=== PATIENT | female | born 1950 | race Caucasian/White ===

== ENCOUNTER 2024-09-06 20:44 | Inpatient (IN) | payer MEDICARE, MEDICAID, SELFPAY ==
[2024-09-06 20:52] VITALS: BP 126/73; PULSE 50; RESP 17; TEMP 36.6; O2SAT 97
--- NOTE | 2024-09-06 20:58 | XR_ITS ---
Examination: CT brain head without contrast. 2-D sagittal coronal reconstructions Date and time of exam:September 07, 1999 2510 0 5:00 PM INDICATIONS: Frequent falls over the last 2-3 weeks with head pain and weakness CTDI: vol (mGy):48.6 DLP: (mGycm):936 Technique: Multiple CT axial sections of the brain have been obtained, 5 mm slice thickness. Contrast has not been administered. 2-D sagittal, coronal reconstructions have been obtained Low dose protocols were performed. One or more of the following dose reduction techniques were used; automated exposure control, adjustment of the mA and/or KV according to patient size, use of iterative reconstruction technique. Findings: No significant ventricular enlargement. Probable encephalomalacia left posterior parietal lobe Intra-axial or extra-axial hemorrhage density is not seen. No mass effect or midline shift Basal cisterns are not remarkable. Fourth ventricle is midline. Cranial vault intact. Impression: Negative for acute hemorrhage, mass effect or midline shift
--- NOTE | 2024-09-06 20:58 | XR_ITS ---
Examination: CT cervical spine without contrast 2-D sagittal reconstructions 2-D coronal reconstructions 3-D reconstructions. Exam date and time:September 06, 2024 1008 hours INDICATIONS: Frequent falls over the last 2-3 weeks with injury to the neck, neck pain CTDI:vol (mGy) 9 DLP: (mGycm) 193 Technique: Multiple 2 mm axial sections of the cervical spine have been obtained. The coronal and sagittal reconstructions have been obtained. 3-D reconstructions have been obtained. Low dose protocols were performed. One or more of the following dose reduction techniques were used; automated exposure control, adjustment of the mA and/or KV according to patient size, use of iterative reconstruction technique. Findings: Axial sections demonstrate intact base of the skull. C1 exhibit satisfactory relationship to the odontoid. No acute cervical vertebral body fracture seen. Alignment posterior spinous processes satisfactory. Impression: No acute cervical fracture.
--- NOTE | 2024-09-06 21:00 | PD.EDADULT ---
ED General RME/HPI General Chief complaint: Weakness Stated complaint: WEAKNESS Time Seen by Provider: 09/06/24 20:58 Arrival date/time: 09/06/24 20:44 CC: Recurrent increased weakness, 5 falls in the last 3 weeks the last one 2 to 3 days ago. Patient denies blood thinners. EMS reports stable vital signs. Patient is awake alert oriented times to person and place complaining of left-sided chest pain status post the last fall. At 2144 with a more detailed discussion with the patient and a family member at bedside with the rain of the nurse at bedside the patient states that she is DNR/DNI. History shows the patient has been offered once pacemaker and of previous episode for similar complaints but declined at today she is willing to try the pacemaker. Related Data Home Medications ?Medication ?Instructions ?Recorded ?Confirmed melatonin 10 mg tablet 10 mg PO HS 09/01/21 09/01/21 Allergies Allergy/AdvReac Type Severity Reaction Status Date / Time No Known Allergies Allergy Verified 09/01/21 11:41 Review of Systems Review of Systems Narrative Review of Systems: GEN: No fever, no chills, no weight loss EYES: No discharge, no visual changes, no pain HEENT: No ear pain, no congestion, no sore throat PULM: No shortness of breath, no cough, no congestion CV: +left chest wall pain, no dyspnea on exertion, no palpitations GI: No nausea, no vomiting, no diarrhea, no pain, no constipation : No frequency, no urgency, no dysuria MUSC/SKEL: No joint pain, no back pain SKIN: No rash PSYCH: No hallucinations, no depression HEME/LYMPH: No easy bleeding or bruising tendencies NEURO: + weakness, no headache Past Medical History Past Medical History NEUROLOGIC: Negative Seizures CARDIAC: Positive Atrial Fibrillation and Hypertension; Negative Congestive Heart Failure RESPIRATORY: Negative Chronic Obstructive Pulmonary Disease (COPD) GENITOURINARY: Negative Renal Disease ENDOCRINE: Negative Diabetes Mellitus Type 1 or Diabetes Mellitus Type 2 HEMATOLOGIC: Positive Anemia OTHER HISTORY: Negative Blood Transfusions or Anesthesia Reactions Social History SMOKING STATUS: Never smoker SECOND HAND EXPOSURE: No SUBSTANCE USE: does not use ED Exam Narrative Physical exam: [General: Morbidly obese not in any acute distress Head normocephalic HEENT: Within acceptable limits Neck is supple nontender Chest equal chest rise nontender to palpation Respiratory: Clear to auscultation no wheezes crackles or rubs CV: Rate rhythm is regular no murmurs rubs or clicks Abdomen is grossly distended secondary to body habitus soft nontender no masses positive bowel sounds all 4 quadrants Back: No CVA tenderness no spinous process tenderness from cervical spine thoracic and lumbar spine Skin: Intact no petechiae rash induration ulceration or crepitus Extremities: Moving all extremities weakly against resistance cap refill less than 2 seconds neurosensory intact Neuro: Awake alert oriented x2, person and place Glascow coma 15 no focal deficits] Course Course Course Narrative: Review the laboratory results show the patient has a worsening CKD, this was discussed with Dr. De Leon her PCP. Dr. De Leon also wants the patient admitted to the ICU and spoke with the resident for Dr. King for the ICU who agrees to accept the patient for admission. Patient currently in bed 1 1 pacer pads. The primary concern is the patient's A-fib with slow ventricular response in the high 30s. The patient remains asymptomatic when laying flat with stable vital signs however concerned about her getting up. Patient in the past declined having a pacer placed but now wants it done. Patient also clearly stated that she was a DNR/DNI. After speaking with Dr. De Leon she is requesting Dr. Aggarwal be involved with this patient's care. Quality Measures none Orders Category Date Time Status EKG (ED ONLY) *Do not use* NOW Care 09/06/24 20:58 Completed Consult to Cardiology Stat Cons 09/06/24 22:46 Ordered Consult to Nephrology Stat Cons 09/06/24 22:[address] cervical spine wo con Stat Exams 09/06/24 20:[address] head/brain wo con Stat Exams 09/06/24 20:58 Completed EKG (ED Only) Stat Exams 09/06/24 20:58 Stop Req XR chest 1V Stat Exams 09/06/24 21:01 Completed B-Type Natriuretic Peptide Stat Lab 09/06/24 21:37 Completed CBC Stat Lab 09/06/24 21:37 Completed Comprehensive Metabolic Panel Stat Lab 09/06/24 21:37 Completed Drug Screen,Urine Stat Lab 09/06/24 21:18 Completed LDH (Lactate Dehydrogenase) Stat Lab 09/06/24 21:37 Completed Magnesium Stat Lab 09/06/24 21:37 Completed Partial Thromboplastin Time Stat Lab 09/06/24 21:37 Completed Prothrombin Time with INR Stat Lab 09/06/24 21:37 Completed Troponin I Stat Lab 09/06/24 21:37 Completed Type and Screen Stat Lab 09/06/24 21:37 Results Urinalysis Stat Lab 09/06/24 21:18 Completed Vital Signs Vital signs: Vital Signs Temperature 97.9 F 09/06/24 20:52 Pulse Rate 50 L 09/06/24 20:52 Respiratory Rate 17 09/06/24 20:52 Blood Pressure 126/73 09/06/24 20:52 Pulse Oximetry (%) 97 09/06/24 20:52 Oxygen Delivery Method Nasal Cannula 09/06/24 20:52 Oxygen Flow Rate 4 09/06/24 20:52 Discharge Plan Plan Patient Disposition: Admit Acute Care w/in Hospital Patient condition on transfer: Stable Prescriptions/Referrals Prescriptions/Med Rec: No Action melatonin 10 mg Tablet 10 mg PO HS Referrals: No Primary/Family,Physician [Primary Care Provider] - In 1 week Problem List Clinical Impression: Symptomatic bradycardia, BOOGIE (acute kidney injury), Recurrent falls, Weakness Patient/Caregiver Discharge Instructions Print Language: Bengali Stand Alone Forms: [employer] Award Info., Patient Portal Info Letter PA/STUDENT [employer] DEAN Supervising Physician PA/[employer]UD[employer] DEAN Supervising Physician: Kev Crawford ENP MDM Clinical Information Provided by: patient and EMS Medical Records reviewed [facility] and EMS EKG Interpretation EKG #1: EKG Interpretation: EKG performed at 2046 shows a ventricular rate of 4 6 QRS of 180 QTc of 478 this is A-fib with slow ventricular response. When compared to an old EKG there are no significant morphologic changes however the rate is slightly lower. Labs Labs: Interpreted by me Lab(s) Interpretation(s): CBC shows no acute leukocytosis anemia there is thrombocytopenia with a platelet count of 84. Coags within acceptable limits Urine is negative for urinary tract infection. UDS is negative CMP shows sodium 140 potassium 4.4 chloride 108 CO2 28.9 gap of 3 BUN 53 creatinine 2.2 glucose 153 serum osmole 297 Troponin is 0.024 BNP at 88. UDS is negative Imaging Imaging interpretation: Interpreted by me Imaging Interpretation(s): Chest x-ray as interpreted by me read by radiology shows no pneumothorax
--- NOTE | 2024-09-06 21:01 | XR_ITS ---
Examination: AP chest single view Technique one AP portable upright chest single view Date and time: September 06, [id number] hours Comparison September 01, 2021 INDICATIONS: Patient fell today with image of the chest, left chest pain FINDINGS: Large retrocardiac gastric hernia Mild to moderate enlargement cardiac contour. No pneumothorax. Clavicles ribs appear intact IMPRESSION: No pneumothorax pulmonary contusion or hemothorax
[2024-09-06 21:02] VITALS: PULSE 54; RESP 20; O2SAT 90
[2024-09-06 21:21] VITALS: BMI 42.5
[2024-09-06 21:45] LABS: Collection Type, Urine Clean Catch
[2024-09-06 21:49] LABS: Basophils % (Auto) 1 % (0-2.5); Eosinophils # (Auto) 0.2 Thou/mm3 (0.0-0.5); Eosinophils % (Auto) 3 % (0-10); Hematocrit 39.4 % (36.0-46.0); Hemoglobin 13.3 g/dL (12.0-16.0); Immature Granulocytes % (Auto) 1 % (0-0); Immature Granulocytes Auto 0.03 Thou/mm3 (0.00-0.00); Lymphocytes # (Auto) 1.3 Thou/mm3 (1.0-4.8); Lymphocytes % (Auto) 20 % (10-50); Mean Corpuscular HGB Conc 33.8 g/dl (31.0-37.0); Mean Corpuscular Hemoglobin 29.4 pg (25.0-35.0); Mean Corpuscular Volume 87 fL (80-100); Monocytes # (Auto) 0.4 Thou/mm3 (0.0-0.8); Monocytes % (Auto) 6 % (0-12); Neutrophils # (Auto) 4.6 Thou/mm3 (1.8-7.7); Neutrophils % (Auto) 70 % (37-80); Nucleated Red Blood Cell % 0 /100 WBC (0); Platelet Count 84 Thou/mm3 (140-440); RDW Standard Deviation 46.2 fL (36.4-46.3); Red Blood Count 4.53 Miln/mm3 (4.00-5.20); White Blood Count 6.6 Thou/mm3 (3.6-11.0)
[2024-09-06 21:54] LABS: Bilirubin,Urine Negative (Negative); Blood,Urine Negative (Negative); Clarity,Urine Clear (Clear/Hazy); Color,Urine Lt-Yellow (Lt Yel-Yel); Glucose, Urine Negative (Negative); Hyaline Casts,Urine < 1 /hpf (0-1); Ketones,Urine Negative (Negative); Leukocyte Esterase,Urine Negative (Negative); Nitrite,Urine Negative (Negative); PH,Urine 5.5 (5.0-7.0); Protein,Urine Negative (Neg - Trace); RBC,Urine < 1 /hpf (0-3); Specific Gravity,Urine 1.017 (1.001-1.035); Squamous Epithelial Cell,Urine 2 /hpf (0-5); Urobilinogen,Urine Negative mg/dL (0.0-1.0); WBC,Urine < 1 /hpf (0-5)
[2024-09-06 22:01] LABS: Amphetamine/Methamp Scrn,U Negative (Negative); Barbiturate Screen,Urine Negative (Negative); Benzodiazepines Screen,Urine Negative (Negative); Benzoylecgonine Screen, Ur Negative (Negative); Fentanyl Screen,Urine Negative (Negative); Opiate Screen,Urine Negative (Negative); THC Screen,Urine Negative (Negative)
[2024-09-06 22:03] LABS: Partial Thromboplastin Time 24.2 Seconds (22.0-36.0)
[2024-09-06 22:06] LABS: B-Type Natriuretic Peptide 88 pg/mL (0-100)
[2024-09-06 22:19] LABS: Alanine Aminotransferase < 7 U/L (10-49); Albumin, Serum 3.9 gm/dL (3.4-4.8); Albumin/Globulin Ratio 1.4 (1.2-2.2); Alkaline Phosphatase 79 U/L (46-116); Anion Gap 3 (7-16); Aspartate Amino Transferase 11 U/L (0-34); BUN/Creatinine Ratio 24 Ratio (12-20); Bilirubin,Total 0.6 mg/dL (0.3-1.2); Blood Urea Nitrogen 53 mg/dL (9-23); Calcium 8.9 mg/dL (8.3-10.6); Carbon Dioxide 28.9 mMol/L (20.0-31.0); Chloride 108 mMol/L (98-107); Creatinine (Component) 2.2 mg/dL (0.6-1.3); Globulin 2.8 gm/dL (2.3-3.5); Glucose 153 mg/dL (74-106); LDH (Lactate Dehydrogenase) 163 U/L (120-246); Magnesium 2.2 mg/dL (1.6-2.6); Osmolality,Calculated 296 (275-295); Potassium 4.5 mMol/L (3.4-5.1); Sodium 140 mMol/L (136-145); Total Protein 6.7 gm/dL (5.7-8.2); Troponin I 0.024 ng/mL (0.0-0.045); eGFR 23 See Note
--- NOTE | 2024-09-06 23:04 | EVENTNT_ITS ---
Documentation for date of: 09/06/24 Event Note Event Note: A 74-year-old female presented to the ER with the chief complaint of weakness. The patient described three weeks of progressive generalized weakness. She reported five falls during this period, with each fall leaving her increasingly debilitated. She stated that after the most recent fall, 2?3 days ago, she became unable to walk independently and required assistance even for basic activities such as transferring to a bedside commode. She reported pain with ambulation and described her legs as too weak to support her. She also c/o mild headache (not positional or associated with visual changes) and nausea without vomiting. The patient denied loss of consciousness, dizziness, chest pain, shortness of breath, vomiting, or leg swelling. She reported no recent trauma and stated that the falls were not associated with any syncopal events. She came to the ER due to worsening weakness and inability to ambulate. The patient has a history of HTN and hyperlipidemia. Surgical history includes remote cholecystectomy. Current medications include Allopurinol, Aspirin, Trazodone, Senna, Lasix, Hydralazine, Lisinopril, and Atorvastatin. Social history includes no smoking, no alcohol use, and no recreational drug use. She lives with her daughter and grandchildren. Functional status was previously independent in ADLs and ambulation; she now requires assistance. Left heart catheterization in 08/2021 showed no significant coronary artery disease. In the ER, vital signs were recorded as temp 97.9 ?F, HR 50 bpm, RR 17, BP 126/73 mmHg, BMI 42, and GCS 15. Lab results revealed WBC 6.6, Hb 13.3, PLT 84, Na 140, K 4.5, Cl 108, BUN 53, creatinine 2.2, eGFR 29, and glucose 153. CXR showed mild to moderate enlargement of the cardiac contour, with no pneumothorax, pulmonary contusion, or hemothorax. EKG demonstrated second-degree AV block, Mobitz type I, rate 46. Admit for further evaluation; pacemaker placement is pending cardiology review. #Symptomatic bradycardia Assessment: Bradycardia (HR 30~50), symptomatic with progressive weakness and multiple falls, EKG-confirmed Mobitz I AV block, pending cardiology evaluation for permanent pacing; BP stable (126/73), GCS 15, no signs of shock; currently hemodynamically stable Plan: - ICU admission overnight for telemetry and close hemodynamic monitoring - Dopamine drip - Bedside pacemaker placement PRN if hemodynamics deteriorate - Cardiology to evaluate in the AM for definitive pacemaker planning - Avoid AV jaskaran blockers - Monitor for progression to higher-grade block or unstable bradycardia #Acute on chronic kidney disease Assessment: Baseline Cr 1.6 (Sep last year), now Cr 2.2 with BUN 53; eGFR 29; evidence of BOOGIE on CKD; chronic HTN and diuretic use; BMI 42 (Class III Obesity) Plan: - Hold nephrotoxic agents - Monitor renal function and electrolytes daily - Nephrology f/u #Falls and functional decline Assessment: Five mechanical falls over 3 weeks with progressive debility, cu rrently non-ambulatory; requires assistance for all ADLs; no syncope or trauma Plan: - Physical therapy evaluation - Fall precautions #Thrombocytopenia Assessment: PLT 84; etiology unclear Plan: - Monitor serial platelet counts - Evaluate for signs of bleeding - SCD #Hypertension Assessment: History of HTN on multiple antihypertensives (including hydralazine and furosemide); currently normotensive (BP 126/73) Plan: - Hold BP meds now - Resume home antihypertensives as renal function stabilizes and volume status is optimized
[2024-09-07] VITALS (91 sets, daily range): BP systolic 94–196; BP diastolic 42–132; PULSE 34–109; RESP 12–30; TEMP 35.9–36.8; O2SAT 88–98
--- NOTE | 2024-09-07 00:04 | PD.RESHP ---
Documentation for date of: 09/07/24 HPI History of Present Illness Chief complaint: Generalized weakness History of present illness: Ms. 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 Patient states for the last 2 to 3 weeks she has been having increased amount of falls 5 episodes of falls. She denies any preceding aura, lightheadedness, passing out, chest pain, shortness of breath, dizziness or any other associated symptoms with the fall. But she does state that she has noticed that she has become weaker requiring assistance to get to the bedside commode. She was previously recommended to have a pacemaker placed but refused because she wanted to attend physical rehabilitation following her CVA. She denies any relevant family history of heart conditions. She currently states that she is wanting a pacemaker now and rehabilitation to improve her functional status. Past medical history: HFpEF 65%, bradycardia, generalized weakness, CVA without residuals, CKD stage IIIb, hypertension, hyperlipidemia, gout Past surgical history: Cholecystectomy 10 years prior Allergies: No known drug allergies Social history: Patient lives with her daughter and grandkids. Is able to ambulate with the assistance of a front wheeled walker but recently has had decreased ambulation and has required assistance. Denies any alcohol or tobacco use. Family history no relevant family history In the ER, vital signs were recorded as temp 97.9 ?F, HR 50 bpm, RR 17, BP 126/73 mmHg, BMI 42, and GCS 15. Lab results revealed WBC 6.6, Hb 13.3, PLT 84, Na 140, K 4.5, Cl 108, BUN 53, creatinine 2.2, eGFR 29, and glucose 153. CXR showed mild to moderate enlargement of the cardiac contour, with no pneumothorax, pulmonary contusion, or hemothorax. EKG demonstrated second-degree AV block, Mobitz type I, rate 46. Admit for further evaluation; pacemaker placement is pending cardiology review. Review of Systems Review of Systems Systems Reviewed: All systems reviewed, normal except as documented Exam Vital Signs Temp Pulse Resp BP Pulse Ox O2 Del Method O2 Flow Rate 97.9 F 50 L 17 126/73 97 Nasal Cannula 4 09/06/24 20:52 09/06/24 20:52 09/06/24 20:52 09/06/24 20:52 09/06/24 20:52 09/06/24 20:52 09/06/24 20:52 Narrative Exam GENERAL: Alert and oriented x 3. No acute distress. Elderly and obese female. EYES: EOMI. Anicteric. HEENT: Moist mucous membranes. No scleral icterus. No cervical lymphadenopathy. LUNGS: Clear to auscultation bilaterally. No accessory muscle use. CARDIOVASCULAR: Irregularly irregular with bradycardia. No murmur. No JVD. ABDOMEN: Soft, non-tender and non-distended. No palpable masses. EXTREMITIES: All 4 extremeties intact. No edema. Nontender. SKIN: Skin underneath the feet appears dirty with long toenails. Warm. NEUROLOGIC: No focal neurological deficits. CN II-XII grossly intact, but not individually tested. PSYCHIATRIC: Cooperative. Appropriate mood and affect. Results: Labs 09/06/24 21:37 09/06/24 21:37 Labs: Short CBC 09/06/24 Range/Units 21:37 WBC 6.6 (3.6-11.0) Thou/mm3 Hgb 13.3 (12.0-16.0) g/dL Hct 39.4 (36.0-46.0) % Plt Count 84 L (140-440) Thou/mm3 BMP 09/06/24 21:37 Sodium 140 Potassium 4.5 Chloride 108 H Carbon Dioxide 28.9 BUN 53 H Creatinine 2.2 H Glucose 153 H Calcium 8.9 Cardiac Enzymes 09/06/24 Range/Units 21:37 Troponin I 0.024 (0.0-0.045) ng/mL Liver Function 09/06/24 Range/Units 21:37 Total Bilirubin 0.6 (0.3-1.2) mg/dL AST 11 (0-34) U/L ALT < 7 L (10-49) U/L Alkaline Phosphatase 79 (46-116) U/L Albumin 3.9 (3.4-4.8) gm/dL Urine 09/06/24 Range/Units 21:18 Urine Color Lt-Yellow (Lt Yel-Yel) Urine Clarity Clear (Clear/Hazy) Urine pH 5.5 (5.0-7.0) Ur Specific [place] 1.017 (1.001-1.035) Urine Protein Negative (Neg - Trace) Urine Glucose (UA) Negative (Negative) Quality Measures Quality Measures none Advance care planning discussed with:: patient Medications Home Medications and Allergies Home Medications ?Medication ?Instructions ?Recorded ?Confirmed ?Type melatonin 10 mg tablet 10 mg PO HS 09/01/21 09/01/21 History Allergies Allergy/AdvReac Type Severity Reaction Status Date / Time No Known Allergies Allergy Verified 09/01/21 11:41 Visit Medications Acetaminophen (Acetaminophen 325 Mg Tablet) 650 mg PO Q6H PRN PRN Reason: PAIN SCALE 1-3 (mild Stop: 10/06/24 23:53 Lactated Ringer's (Lactated Ringers) 1,000 mls @ 75 mls/hr IV .[id number] FAN Stop: 10/06/24 23:44 Dopamine HCl/Dextrose (Intropin In D5w Ivpb) 400 mg in 250 mls @ 21.738 mls/hr IV .[id number] FAN; Protocol Stop: 10/06/24 23:56 Ondansetron HCl (Ondansetron Inj 2 Mg/Ml Inj 2 Ml) 4 mg IV Q6H PRN; Protocol PRN Reason: NAUSEA OR VOMITING Stop: 10/06/24 23:53 Pantoprazole Sodium (Pantoprazole Inj 40 Mg Vial) 40 mg IVP QDAY FAN Stop: 10/07/24 08:59 Sennosides (Senna Tablet) 1 tab PO QDAY FAN; Protocol Stop: 10/07/24 08:59 Assessment & Plan Plan Neurology Problem: Insomnia/difficulty sleeping Treatment plan: Patient takes trazodone 50 mg p.o. at bedtime, multiple nutritional supplements including melatonin and other sleep aids Will hold medications until postprocedure Cardiovascular Problem: Symptomatic bradycardia DDx: EKG reveals A-fib with slow ventricular rate. Previous history of Mobitz type I Diagnostic Test: EKG reveals AFIB with rate of 46. Appears chronic Treatment Plan: Start dopamine drip, titrate to keep heart rate above 40, cardiology consultation ordered, cardiac echo exam ordered Treatment Review: Patient currently is asymptomatic and stable Problem: Hypertension Diagnostic test: Monitor vital signs every hour Treatment plan: Patient takes lisinopril 40 Mg p.o. daily, Lasix 40 Mg p.o. daily hydralazine. Will resume medications once blood pressure can tolerate Respiratory Problem: Stable, no active disease GI and F/E/N Problem: None, n.p.o. Renal Problem: BOOGIE on CKD DDx: May be secondary to decreased p.o. intake and generalized weakness. Unlikely to be postrenal in the fact patient has not had difficulty with urination or dysuria. CKD may be in the setting of longstanding hypertension Diagnostic Test: Monitor with daily labs. Currently creatinine 2.1 and baseline is 1.5-1.6 Treatment Plan: Will get patient's nutrition club ambassador Dr. De Leon on board. LR at 75 cc an hour Heme Problem: Stable, NAD Endo Problem: Stable, NAD. A1c in the a.m. ID Problem: Stable, NAD DVT prophylaxis: SCDs, will transition to chemical DVT prophylaxis after patient is assessed by cardiology GI prophylaxis: Protonix IV 40 daily Diet: N.p.o. currently [place]: Not indicated Lines: Peripheral IVs Drips: Dopamine to be titrated to maintain heart rate above 40 Vent: N/A CODE STATUS: DNR/DNI Reason for hospitalization generalized weakness with frequent falls and asymptomatic bradycardia Plan of care discussed with supervising attending Dr. Fernando Maldonado M.D. PGY-3 Attending Provider Attestation/Addendum Pt was evaluated and plan formulated together with the housestaff team. I have reviewed the residents note above and agree with most of its content. Please refer to the residents note for additional details. Critical time spent on the patient: 52 minutes.
[2024-09-07] MEDS: RINGERS LACTATED 1000 ML 1,000 ML 75 ML IV (00:21)
[2024-09-07] MEDS: DOPamine/D5w 400 MG IVPB 400 MG/250 ML BAG 21.738 MG IV ×2 (01:21→12:56)
--- NOTE | 2024-09-07 02:20 | PC.NURSE ---
DR. SOLANO MADE AWARE OF NOTED CHANGE IN RHYTHM ON MONITOR. PT AWAKE AND ALERT, DENIES ANY CHEST PAIN OR SOB. VERBAL ORDER RECEIVED FOR REPEAT EKG.
--- NOTE | 2024-09-07 02:25 | EKG_ITS ---
[facility] Test Date: 2024-09-07 Pat Name: BUDDY DICK Department: Room: [facility] Gender: Female Organizational Effectiveness Director: : 1950 Requested By: Gela Maldonado Order Number: [id number] Reading MD: Gela Maldonado Measurements Intervals [place] Rate: 74 P: NC: QRS: -60 QRSD: 186 T: 63 QT: 426 QTc: 474 Interpretive Statements UNCERTAIN IRREGULAR RHYTHM RIGHT BUNDLE BRANCH BLOCK [120+ ms QRS DURATION, UPRIGHT V1, 40+ ms S IN I/aVL/V4/V5/V6] LEFT ANTERIOR FASCICULAR BLOCK [QRS AXIS <= -45, QR IN I, RS IN II] LEFT VENTRICULAR HYPERTROPHY AND ST-T CHANGE [VOLTAGE CRITERIA PLUS ST/T ABNORMALITY] POSSIBLE ANTERIOR MYOCARDIAL INFARCTION , OF INDETERMINATE AGE [30 ms Q WAVE IN V3/V4, OR R < 0.2 mV IN V4] Compared to ECG 06/01/2022 14:09:10 Left anterior fascicular block now present ST (T wave) deviation now present Sinus bradycardia no longer present First degree AV block no longer present Left-axis deviation no longer present Myocardial infarct finding still present /store/S0/[id number].pdf
[2024-09-07 04:57] LABS: Basophils % (Auto) 1 % (0-2.5); Eosinophils # (Auto) 0.1 Thou/mm3 (0.0-0.5); Eosinophils % (Auto) 2 % (0-10); Hematocrit 39.9 % (36.0-46.0); Hemoglobin 13.5 g/dL (12.0-16.0); Immature Granulocytes % (Auto) 1 % (0-0); Immature Granulocytes Auto 0.03 Thou/mm3 (0.00-0.00); Lymphocytes # (Auto) 1.1 Thou/mm3 (1.0-4.8); Lymphocytes % (Auto) 17 % (10-50); Mean Corpuscular HGB Conc 33.8 g/dl (31.0-37.0); Mean Corpuscular Hemoglobin 29.1 pg (25.0-35.0); Mean Corpuscular Volume 86 fL (80-100); Monocytes # (Auto) 0.5 Thou/mm3 (0.0-0.8); Monocytes % (Auto) 7 % (0-12); Neutrophils # (Auto) 4.6 Thou/mm3 (1.8-7.7); Neutrophils % (Auto) 73 % (37-80); Nucleated Red Blood Cell % 0 /100 WBC (0); Platelet Count 79 Thou/mm3 (140-440); RDW Standard Deviation 44.5 fL (36.4-46.3); Red Blood Count 4.64 Miln/mm3 (4.00-5.20); White Blood Count 6.3 Thou/mm3 (3.6-11.0)
[2024-09-07 05:06] LABS: Prothrombin Time 11.1 Seconds (9.0-12.2)
[2024-09-07 05:23] LABS: Alanine Aminotransferase < 7 U/L (10-49); Albumin/Globulin Ratio 1.3 (1.2-2.2); Alkaline Phosphatase 81 U/L (46-116); Anion Gap 7 (7-16); Aspartate Amino Transferase < 10 U/L (0-34); BUN/Creatinine Ratio 24 Ratio (12-20); Bilirubin,Total 0.7 mg/dL (0.3-1.2); Blood Urea Nitrogen 47 mg/dL (9-23); Carbon Dioxide 26.3 mMol/L (20.0-31.0); Cardiac Risk Estimate 1.8 RATIO (3.7-5.6); Chloride 107 mMol/L (98-107); Cholesterol 80 mg/dL (132-200); Estimated Creatinine Clearance 31.9 mL/min (>60); Glucose 135 mg/dL (74-106); HDL Cholesterol 44 mg/dL (40-60); LDL Cholesterol,Calculated 19 mg/dL (0-130); Magnesium 2.2 mg/dL (1.6-2.6); Osmolality,Calculated 293 (275-295); Phosphorous 3.4 mg/dL (2.4-5.1); Potassium 4.1 mMol/L (3.4-5.1); Sodium 140 mMol/L (136-145); Thyroid Stimulating Hormone 1.81 uIU/mL (0.55-4.78); Triglycerides 85 mg/dL (30-150); eGFR 26 See Note
[2024-09-07 05:25] LABS: Glucose Estimated Average 108 mg/dL (80-131); Hemoglobin A1C 5.4 % Hgb (4.8-6.0)
[2024-09-07 06:37] LABS: Slide Review Platelets confirmed
--- NOTE | 2024-09-07 08:30 | EKG_ITS ---
[facility] Test Date: 2024-09-07 Pat Name: BUDDY DICK [facility] Gender: Female Crna: RAJNI : 1950 Requested By: Laurie Ornoa Order Number: [id number] Reading MD: Laurie Orona Measurements Intervals [place] Rate: 53 P: AL: QRS: -61 QRSD: 178 T: 48 QT: 505 QTc: 476 Interpretive Statements UNCERTAIN REGULAR RHYTHM RIGHT BUNDLE BRANCH BLOCK LEFT ANTERIOR FASCICULAR BLOCK LEFT VENTRICULAR HYPERTROPHY AND ST-T CHANGE POSSIBLE ANTERIOR MYOCARDIAL INFARCTION , PROBABLY OLD Compared to ECG 09/07/2024 02:23:41 No significant changes /store/S0/[id number]
--- NOTE | 2024-09-07 09:12 | ESPR_ITS ---
<Statement entered by Jomar Siu MD - 09/08/24 07:55> TOTAL CC TIME: 45 MIN I saw and evaluated the patient. I reviewed the resident?s note and agree with findings and plan as documented in the resident?s note. Upon my evaluation, this patient had a high probability of imminent or life- threatening deterioration due to symptomatic bradycardia, first-degree block, frequent PVCs, left and right ventricular fascicular block with which required my direct attention, intervention, and personal management. This time is exclusive of time spent on procedures, which are documented separately if performed. Blood pressure and heart rate are Within acceptable limits while on dopamine. Although hypertensive we will defer treatment given bradycardia. Pending pacemaker. Mild hypoxia due to pulmonary edema, diuretic started. Review of past imaging clearly identifies a past history of volume overload with signs of RV failure on CT scan Documentation for date of: 09/07/24 Subjective Subjective Interval history: Ms. 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 Patient states for the last 2 to 3 weeks she has been having increased amount of falls 5 episodes of falls. She denies any preceding aura, lightheadedness, passing out, chest pain, shortness of breath, dizziness or any other associated symptoms with the fall. But she does state that she has noticed that she has become weaker requiring assistance to get to the bedside commode. She was previously recommended to have a pacemaker placed but refused because she wanted to attend physical rehabilitation following her CVA. She denies any relevant family history of heart conditions. She currently states that she is wanting a pacemaker now and rehabilitation to improve her functional status. In the ER, vital signs were recorded as temp 97.9 ?F, HR 50 bpm, RR 17, BP 126/73 mmHg, BMI 42, and GCS 15. Lab results revealed WBC 6.6, Hb 13.3, PLT 84, Na 140, K 4.5, Cl 108, BUN 53, creatinine 2.2, eGFR 29, and glucose 153. CXR showed mild to moderate enlargement of the cardiac contour, with no pneumothorax, pulmonary contusion, or hemothorax. EKG demonstrated second-degree AV block, Mobitz type I, rate 46. Admit for further evaluation; pacemaker placement is pending cardiology review. 09/07/24: Patient was seen and examined in the ICU. She continues to be on the dopamine drip at 5mcg/kg/hr and maintaining a stable rate in the high 50s low 60s. Repeat EKG showed very prolonged NV interval resembling first degree av block however she has strips where patient seems to go in and out of 3rd degree block. Spoke to cardio team and patient will be scheduled for pacemaker insertion tomorrow. We will feed her today. She is requiring increased O2 to keep saturation above 92 because of pulmonary edema as seen by her congested Xray and US that reveals bilateral B lines without signs of pleural effusion. Will DC maintenance fluids and encourage oral intake. Exam Vital Signs Temp Pulse Resp BP Pulse Ox O2 Del Method O2 Flow Rate 97.9 F 60 17 109/51 L 95 Nasal Cannula 2 09/07/24 06:23 09/07/24 06:23 09/07/24 06:23 09/07/24 06:23 09/07/24 06:23 09/07/24 06:23 09/07/24 06:23 Narrative Exam Constitutional: Well nourished and in no acute distress Neck: Supple to palpation, No JVD CVS: RRR, S1 and S2 present, no murmurs, rubs or gallops . RESP: CTAB, no SOB, no rales, rhonchi or wheezing. No respiratory Distress GI: Normal BS, Nontender/Nondistended. MSK: Full range of motion, No trauma or deformities or masses. Skin: Warm to touch, Dry. No rashes or lesions. No hematomas Neuro: inspector final assembly mechanical II-XII grossly intact. Sensation grossly intact. Psych: (AAO) x3 . Appropriate mood and affect. Objective Labs 09/07/24 04:29 09/07/24 04:29 Labs: Laboratory Results - last 24 hr 09/06/24 09/06/24 09/07/24 21:18 21:37 04:29 WBC 6.6 6.3 RBC 4.53 4.64 Hgb 13.3 13.5 Hct 39.4 39.9 MCV 87 86 MCH 29.4 29.1 MCHC 33.8 33.8 RDW Std Deviation 46.2 44.5 Plt Count 84 L 79 L Neut % (Auto) 70 73 Lymph % (Auto) 20 17 [place] % (Auto) 6 7 Eos % (Auto) 3 2 Baso % (Auto) 1 1 Neut # (Auto) 4.6 4.6 Lymph # (Auto) 1.3 1.1 [place] # (Auto) 0.4 0.5 Eos # (Auto) 0.2 0.1 Baso # (Auto) 0.0 0.0 Immature Gran # (Auto) 0.03 H 0.03 H Absolute Nucleated RBC 0.00 0.00 Immature Gran % 1 H 1 H Nucleated RBC % 0 0 PT 11.0 11.1 INR 1.0 1.0 APTT 24.2 Sodium 140 140 Potassium 4.5 4.1 Chloride 108 H 107 Carbon Dioxide 28.9 26.3 Anion Gap 3 L 7 BUN 53 H 47 H Creatinine 2.2 H 2.0 H Estim Creat Clear Calc 29.0 L 31.9 L eGFR 23 L 26 L BUN/Creatinine Ratio 24 H 24 H Glucose [address] Glu mg/dL 108 Hemoglobin A1c 5.4 Calculated Osmolality 296 H 293 Calcium 8.9 9.0 Corrected Calcium 9.0 9.0 Phosphorus 3.4 Magnesium 2.2 2.2 Total Bilirubin 0.6 0.7 AST 11 < 10 ALT < 7 L < 7 L Alkaline Phosphatase 79 81 Lactate Dehydrogenase 163 Troponin I 0.024 B-Natriuretic Peptide 88 Total Protein 6.7 7.0 Albumin 3.9 4.0 Globulin 2.8 3.0 Albumin/Globulin Ratio 1.4 1.3 Triglycerides 85 Cholesterol 80 L LDL Cholesterol, Calc 19 HDL Cholesterol 44 Cholesterol/HDL Ratio 1.8 L TSH 1.81 Ur Collection Type Clean Catch Urine Color Lt-Yellow Urine Clarity Clear Urine pH 5.5 Ur Specific [place] 1.017 Urine Protein Negative Urine Glucose (UA) Negative Urine Ketones Negative Urine Blood Negative Urine Nitrite Negative Urine Bilirubin Negative Urine Urobilinogen (Auto) Negative Ur Leukocyte Esterase Negative Urine RBC < 1 Urine WBC < 1 Ur Squamous Epith Cells 2 Urine Bacteria None Hyaline Casts < 1 Urine Opiates Screen Negative Urine Fentanyl Screen Negative Ur Barbiturates Screen Negative U Amphetamin/Meth Scrn Negative U Benzodiazepines Scrn Negative U Cocaine Metab Screen Negative U Marijuana (THC) Screen Negative Misc Test Result Platelets confirmed Blood Type O Negative Antibody Screen POSITIVE Antibody Identification Anti-K Blood Bank Wristband ID Yes Quality Measures Quality Measures none Advance care planning discussed with:: patient Assessment & Plan Assessment Current Active Medications: Generic Name Dose Route Start Last Admin Trade Name Db PRN Reason Stop Dose Admin Acetaminophen 650 mg 09/06/24 23:54 Acetaminophen 325 Mg Tablet PO 10/06/24 23:53 Q6H PRN PAIN SCALE 1-3 (mild Dopamine HCl/Dextrose 400 mg in 250 mls @ 21.738 mls/hr 09/07/24 00:07 09/07/24 07:45 Intropin In D5w Ivpb IV 10/06/24 23:56 5 mcg/kg/min .[id number] FAN 21.738 mls/hr Titration Protocol 5 MCG/KG/MIN Ondansetron HCl 4 mg 09/06/24 23:54 Ondansetron Inj 2 Mg/Ml Inj 2 Ml IV 10/06/24 23:53 Q6H PRN NAUSEA OR VOMITING Protocol Pantoprazole Sodium 40 mg 09/07/24 09:00 Pantoprazole Inj 40 Mg Vial IVP 10/07/24 08:59 QDAY [facility] Sennosides 1 tab 09/07/24 09:00 Senna Tablet PO 10/07/24 08:59 QDAY FAN Protocol Plan 74-year-old female with past medical history of HFpEF with EF of 65%, previous history of bradycardia, generalized weakness, 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 Neurology Problem: Insomnia/difficulty sleeping Treatment plan: Patient takes trazodone 50 mg p.o. at bedtime which we'll discontinue as it can cause cardiac arrhythmias Cardiovascular Problem: Symptomatic bradycardia DDx: EKG reveals A-fib with slow ventricular rate. Previous history of Mobitz type I Diagnostic Test: EKG reveals AFIB with rate of 46. Appears chronic. REPEAT EKG revealed prolonged NV interval. Treatment Plan: Start dopamine drip, titrate to keep heart rate above 40, cardiology consultation ordered, cardiac echo exam ordered Treatment Review: Patient currently is asymptomatic and stable Problem: Hypertension Diagnostic test: Monitor vital signs every hour Treatment plan: Patient takes lisinopril 40 Mg p.o. daily, Lasix 40 Mg p.o. daily hydralazine. Will resume medications after the pacemaker has been inserted to avoid BP instability with bradycardia Respiratory Problem: AHRF Secondary to pulmunary edema CXR revealed vascular congestion and bedside US revealed B lines. Will D/C maintenance fluids and encourage PO intake. GI and F/E/N Problem: Cardiac diet Renal Problem: BOOGIE on CKD DDx: May be secondary to decreased p.o. intake and generalized weakness. Unlikely to be postrenal in the fact patient has not had difficulty with urination or dysuria. CKD may be in the setting of longstanding hypertension Diagnostic Test: Monitor with daily labs. Currently creatinine 2.1 and baseline is 1.5-1.6 Treatment Plan: Will get patient's esol instructor Dr. De Leon on board. Heme Problem: Stable Endo Problem: Stable. A1c 5.4 ID Problem: Stable DVT prophylaxis: SCDs GI prophylaxis: SCDs Diet: Cardiac diet, NPO after midnight [place]: Not indicated Lines: Peripheral IVs Drips: Dopamine to be titrated to maintain heart rate above 40 Vent: N/A CODE STATUS: DNR/DNI Reason for hospitalization generalized weakness with frequent falls and asymptomatic bradycardia Plan of care discussed with supervising attending Dr. Sherron Aguero MD PGY-3
[2024-09-07] MEDS: PANTOPRAZOLE INJ 40 MG VIAL IVP (10:01)
--- NOTE | 2024-09-07 12:25 | PC.PT ---
PT eval received. Patient has bradycardia and is pending pacemaker implant tomorrow. Will evaluate patient after pacemaker implant.
--- NOTE | 2024-09-07 13:21 | PD.RESCONSUL ---
HPI Data of Consult Consult date: 09/07/24 Requesting Physician: Mukesh King MD Admitting Provider: Mukesh King MD Attending Provider: Mukesh King MD Primary Care Provider: Physician No Primary/Family Consult Narrative Reason for consult: Management of BOOGIE on CKD History of present illness: Ms. 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 Patient states for the last 2 to 3 weeks she has been having increased amount of falls 5 episodes of falls. She denies any preceding aura, lightheadedness, passing out, chest pain, shortness of breath, dizziness or any other associated symptoms with the fall. But she does state that she has noticed that she has become weaker requiring assistance to get to the bedside commode. She was previously recommended to have a pacemaker placed but refused because she wanted to attend physical rehabilitation following her CVA. She denies any relevant family history of heart conditions. She currently states that she is wanting a pacemaker now and rehabilitation to improve her functional status. In the ER, vital signs were recorded as temp 97.9 ?F, HR 50 bpm, RR 17, BP 126/73 mmHg, BMI 42, and GCS 15. Lab results revealed WBC 6.6, Hb 13.3, PLT 84, Na 140, K 4.5, Cl 108, BUN 53, creatinine 2.2, eGFR 29, and glucose 153. CXR showed mild to moderate enlargement of the cardiac contour, with no pneumothorax, pulmonary contusion, or hemothorax. EKG demonstrated second-degree AV block, Mobitz type I, rate 46. Admit for further evaluation; pacemaker placement is pending cardiology review. Nephrology consulted for management of BOOGIE on CKD, Dr. De Leon is patient's teletypesetter operator//PCP. Patient seen and examined at bedside, resting comfortably. Endorses multiple falls with increasing weakness each fall, some dizziness. Patient does deny chest pain, shortness of breath, prodrome before falls, fever, chills, nausea, vomiting. Patient currently on dopamine drip with pacer pads. Dr. Aggarwal consulted for pacemaker placement. Sodium 140, potassium 4.1, bicarb 26.3, BUN 47, creatinine 2.0, EGFR 26. Kidney function improving, patient appears clinically dry on exam. On lactated Ringer's at 75 cc/h. cc:: cc: Mukesh King MD Review of Systems Review of Systems Systems Reviewed: All systems reviewed, normal except as documented Exam Vital Signs Temp Pulse Resp BP Pulse Ox O2 Del Method O2 Flow Rate 98.3 F 49 L 18 168/65 H 96 Nasal Cannula 2 09/07/24 12:02 09/07/24 13:09/07/24 13:09/07/24 13:09/07/24 13:09/07/24 10:00 09/07/24 10:00 Narrative Exam PE: Gen: Well-developed and well-nourished. HEENT: NCAT, PERRLA, EOMI, MMM, anicteric conjunctivae. CVS: normal S1 and S2. No M/R/G. Bradycardic, regular rhythm. Resp: CTA B/L. No rhonchi, rales, crackles or wheezing. Abd: soft, non-tender, non-distended. BS+ in all 4 quadrants. MSK: Good ROM in BUE & BLE. No edema or rash. Neuro: CN II-XII grossly intact. Strength 5/5 in BUE & BLE. Alert and oriented x3. Psych: appropriate mood and affect. Results Labs 09/07/24 04:29 09/07/24 04:29 Labs: Short CBC 09/06/24 09/07/24 Range/Units 21:37 04:29 WBC 6.6 6.3 (3.6-11.0) Thou/mm3 Hgb 13.3 13.5 (12.0-16.0) g/dL Hct 39.4 39.9 (36.0-46.0) % Plt Count 84 L 79 L (140-440) Thou/mm3 BMP 09/06/24 09/07/24 21:37 04:29 Sodium 140 140 Potassium 4.5 4.1 Chloride 108 H 107 Carbon Dioxide 28.9 26.3 BUN 53 H 47 H Creatinine 2.2 H 2.0 H Glucose 153 H 135 H Calcium 8.9 9.0 Cardiac Enzymes 09/06/24 Range/Units 21:37 Troponin I 0.024 (0.0-0.045) ng/mL Liver Function 09/06/24 09/07/24 Range/Units 21:37 04:29 Total Bilirubin 0.6 0.7 (0.3-1.2) mg/dL AST 11 < 10 (0-34) U/L ALT < 7 L < 7 L (10-49) U/L Alkaline Phosphatase 79 81 (46-116) U/L Albumin 3.9 4.0 (3.4-4.8) gm/dL Urine 09/06/24 Range/Units 21:18 Urine Color Lt-Yellow (Lt Yel-Yel) Urine Clarity Clear (Clear/Hazy) Urine pH 5.5 (5.0-7.0) Ur Specific [place] 1.017 (1.001-1.035) Urine Protein Negative (Neg - Trace) Urine Glucose (UA) Negative (Negative) Quality Measures Quality Measures VTE prophylaxis Advance care planning discussed with:: patient Medications Home Medications and Allergies Home Medications ?Medication ?Instructions ?Recorded ?Confirmed ?Type melatonin 10 mg tablet 10 mg PO HS 09/01/21 09/07/24 History allopurinol 100 mg tablet 100 mg PO QDAY 09/07/24 09/07/24 History aspirin 81 mg tablet,delayed 81 mg PO QDAY 09/07/24 09/07/24 History release atorvastatin 80 mg tablet 80 mg PO HS 09/07/24 09/07/24 History furosemide 40 mg tablet 40 mg PO QDAY 09/07/24 09/07/24 History hydralazine 100 mg tablet 100 mg PO BID 09/07/24 09/07/24 History lisinopril 40 mg tablet 40 mg PO QDAY 09/07/24 09/07/24 History trazodone 50 mg tablet 50 mg PO HS 09/07/24 09/07/24 History Allergies Allergy/AdvReac Type Severity Reaction Status Date / Time No Known Allergies Allergy Verified 09/01/21 11:41 Visit Medications Acetaminophen (Acetaminophen 325 Mg Tablet) 650 mg PO Q6H PRN PRN Reason: PAIN SCALE 1-3 (mild Stop: 10/06/24 23:53 Dopamine HCl/Dextrose (Intropin In D5w Ivpb) 400 mg in 250 mls @ 21.738 mls/hr IV .[id number] [facility]; Protocol Stop: 10/06/24 23:56 Last Admin: 09/07/24 12:56 Dose: 5 mcg/kg/min, 21.738 mls/hr Ondansetron HCl (Ondansetron Inj 2 Mg/Ml Inj 2 Ml) 4 mg IV Q6H PRN; Protocol PRN Reason: NAUSEA OR VOMITING Stop: 10/06/24 23:53 Sennosides (Senna Tablet) 1 tab PO QDAY [facility]; Protocol Stop: 10/07/24 08:59 Last Admin: 09/07/24 10:02 Dose: Not Given Discontinued Medications Lactated Ringer's (Lactated Ringers) 1,000 mls @ 75 mls/hr IV .[id number] FAN Stop: 10/06/24 23:44 Last Admin: 09/07/24 00:21 Dose: 75 mls/hr Dopamine HCl/Dextrose (Intropin In D5w Ivpb) 400 mg in 250 mls @ 21.738 mls/hr IV .[id number] FAN; Protocol Stop: 10/06/24 23:56 Last Admin: 09/07/24 00:40 Dose: Not Given Pantoprazole Sodium (Pantoprazole Inj 40 Mg Vial) 40 mg IVP QDAY FAN Stop: 10/07/24 08:59 Last Admin: 09/07/24 10:01 Dose: 40 mg Assessment & Plan Plan 74-year-old female with past medical history of HFpEF with EF of 65%, previous history of bradycardia, generalized weakness, 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 #BOOGIE on CKD Likely prerenal, patient is dry on exam and renal function proved with IVF. May be secondary to decreased p.o. intake and generalized weakness. Unlikely to be postrenal, patient has not had difficulty with urination or dysuria. CKD may be in the setting of longstanding hypertension. Currently creatinine 2.1 and baseline is 1.5-1.6. - IVF: Lactated Ringer's at 75 cc/h - Avoid nephrotoxins - Monitor daily labs - Renally dose meds #Symptomatic bradycardia//third-degree block EKG reveals A-fib with slow ventricular rate. Previous history of Mobitz type I. Patient was offered pacemaker in the past however declined. Patient is now open to receiving pacemaker settings symptomatic bradycardia. EKG reveals AFIB with rate of 46. Appears chronic. REPEAT EKG revealed prolonged UT interval. Patient admitted to ICU and was started on dopamine drip, has transcutaneous pacer pads. Cardiology consulted with plan to implant pacemaker. - Dopamine drip, managed by ICU team - Cardiology following, appreciate recommendations - Will receive care of patient once downgraded from ICU #Insomnia/difficulty sleeping #Hypertension #AHRF, Secondary to pulmunary edema #HFpEF #CVA Management as per ICU team DVT prophylaxis: SCDs GI prophylaxis: None Diet: Cardiac diet, NPO after midnight Lines: Peripheral IVs Drips: Dopamine to be titrated to maintain heart rate above 40 CODE STATUS: DNR/DNI Thank you for allowing us to participate in the care of this patient. Plan of care discussed with attending Dr. De Leon. Charles Phillips MD PGY?1 Attending Provider Attestation/Addendum Patient seen and examined with resident physician Dr. Boogie. Note reviewed, agree with findings and recommendations. Well-known to me from my clinic as she is one of her primary patients. Admitted with symptomatic bradycardia and frequent falls. Spoke to Dr. Matos-patient has third-degree block and needs a pacemaker. She is willing to go for pacemaker placement. Currently has external pacer/dopamine. Plan of care discussed with ICU team. Thank you Dr. Siu for allowing me to participate in the care of Ms. Silvestre
[2024-09-07] MEDS: Furosemide 40 MG TABLET PO (14:46)
--- NOTE | 2024-09-07 15:04 | PC.SS ---
SS update: Patient on dopamine drip. Planned pacemaker placement tomorrow.
[2024-09-07] MEDS: ONDANSETRON INJ 2 MG/ML INJ 2 ML 4 MG IV (15:48)
--- NOTE | 2024-09-07 17:18 | ESCONSULT_ITS ---
<Statement entered by Natasha Aggarwal MD - 09/08/24 08:17> I personally examined the patient evaluate in the intensive care unit she presented to the hospital frequent falls and near syncope symptomatic bradycardia heart rate of 35 with complete heart block A-V dissociation. Patient has had bradycardia in the past multiple hospitalization previously she was in Mobitz type II heart block 2022. Patient apparently had a HFrEF ejection fraction 20% nonischemic cardiomyopathy by coronary angiogram 2021 but now has ejection fraction around 55% which is quite good hence patient is recommended dual-chamber permanent placement plantation class medication. Risk benefits alternative explained patient agreed to have the procedure performed evaluated patient with resident physician agree with treatment plan recommendation keep the low-dose dopamine until pacemaker is completed tomorrow morning around 8:00. Evaluate the patient and agree with treatment plan recommendation as documented by Dr. 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 She was previously recommended to have a pacemaker placed due to bradycardia but refused, however now is wanting a pacemaker. She reports no LOC or major trauma due to falls. She also denies palpitations, low BP at home, SOB or chest pain. In the ER, vital signs were recorded as temp 97.9 ?F, HR 50 bpm, RR 17, BP 126/73 mmHg. CXR showed mild to moderate enlargement of the cardiac contour. EKG demonstrated third-degree AV block, rate 46. Admitted for further evaluation and possible pacemaker placement, cardiology consulted. Patient was seen and examined at the bedside. She reports no complains now and is asymptomatic. She is on low dose dopamine drip. Her HR remains in 45-55 BPM. Echo was done showed normal left ventricular size and function, approximate ejection fraction is 50-55%, RV appears normal with RVSP 25 mmHg, LA is mildly dilated, AOV sclerosis nomstenosis, Trace mitral and trace tricuspid regurgitation. She is planned for biventricular pacemaker placement tomorrow morning. cc:: cc: Mukesh King MD Review of Systems Review of Systems Systems Reviewed: All systems reviewed, normal except as documented Exam Vital Signs Temp Pulse Resp BP Pulse Ox O2 Del Method O2 Flow Rate 98.2 F 58 L 25 H 170/58 H 92 L Nasal Cannula 2 09/07/24 16:02 09/07/24 16:30 09/07/24 16:30 09/07/24 16:30 09/07/24 16:30 09/07/24 16:30 09/07/24 16:30 Narrative Exam Gen: Well-developed and well-nourished elderly female. HEENT: NCAT, PERRLA, EOMI, MMM, anicteric conjunctivae. CVS: normal S1 and S2. Regular bradycardia. Systolic murmur over aortic area. Resp: CTA B/L. No rhonchi, rales, crackles or wheezing. Abd: soft, obese, non-tender, non-distended. BS+ in all 4 quadrants. MSK: Good ROM in BUE & BLE. No edema or rash. Neuro: CN II-XII grossly intact. Strength 5/5 in BUE & BLE. Alert and oriented x3. Psych: appropriate mood and affect. Results Labs 09/07/24 04:29 09/07/24 04:29 Labs: Short CBC 09/06/24 09/07/24 Range/Units 21:37 04:29 WBC 6.6 6.3 (3.6-11.0) Thou/mm3 Hgb 13.3 13.5 (12.0-16.0) g/dL Hct 39.4 39.9 (36.0-46.0) % Plt Count 84 L 79 L (140-440) Thou/mm3 BMP 09/06/24 09/07/24 21:37 04:29 Sodium 140 140 Potassium 4.5 4.1 Chloride 108 H 107 Carbon Dioxide 28.9 26.3 BUN 53 H 47 H Creatinine 2.2 H 2.0 H Glucose 153 H 135 H Calcium 8.9 9.0 Cardiac Enzymes 09/06/24 Range/Units 21:37 Troponin I 0.024 (0.0-0.045) ng/mL Liver Function 09/06/24 09/07/24 Range/Units 21:37 04:29 Total Bilirubin 0.6 0.7 (0.3-1.2) mg/dL AST 11 < 10 (0-34) U/L ALT < 7 L < 7 L (10-49) U/L Alkaline Phosphatase 79 81 (46-116) U/L Albumin 3.9 4.0 (3.4-4.8) gm/dL Urine 09/06/24 Range/Units 21:18 Urine Color Lt-Yellow (Lt Yel-Yel) Urine Clarity Clear (Clear/Hazy) Urine pH 5.5 (5.0-7.0) Ur Specific [place] 1.017 (1.001-1.035) Urine Protein Negative (Neg - Trace) Urine Glucose (UA) Negative (Negative) Quality Measures Quality Measures VTE prophylaxis Advance care planning discussed with:: patient Medications Home Medications and Allergies Home Medications ?Medication ?Instructions ?Recorded ?Confirmed ?Type melatonin 10 mg tablet 10 mg PO HS 09/01/21 5 History allopurinol 100 mg tablet 100 mg PO QDAY 09/07/2408/27 History aspirin 81 mg tablet,delayed 81 mg PO QDAY 09/07/24 History release atorvastatin 80 mg tablet 80 mg PO HS 09/07/24 5 History furosemide 40 mg tablet 40 mg PO QDAY 09/07/2409/07 History hydralazine 100 mg tablet 100 mg PO BID 09/07/2409/07 History lisinopril 40 mg tablet 40 mg PO QDAY 09/07/2409/07 History trazodone 50 mg tablet 50 mg PO HS 09/07/24 5 History Allergies Allergy/AdvReac Type Severity Reaction Status Date / Time No Known Allergies Allergy Verified 09/01/21 11:41 Visit Medications Acetaminophen (Acetaminophen 325 Mg Tablet) 650 mg PO Q6H PRN PRN Reason: PAIN SCALE 1-3 (mild Stop: 10/06/24 23:53 Dopamine HCl/Dextrose (Intropin In D5w Ivpb) 400 mg in 250 mls @ 21.738 mls/hr IV .[id number] [facility]; Protocol Stop: 10/06/24 23:56 Last Titration: 09/07/24 15:00 Dose: 7 mcg/kg/min, 30.434 mls/hr Sennosides (Senna Tablet) 1 tab PO QDAY [facility]; Protocol Stop: 10/07/24 08:59 Last Admin: 09/07/24 10:02 Dose: Not Given Discontinued Medications Furosemide (Furosemide 40 Mg Tablet) 40 mg PO X1 ONE Stop: 09/07/24 14:35 Last Admin: 09/07/24 14:46 Dose: 40 mg Lactated Ringer's (Lactated Ringers) 1,000 mls @ 75 mls/hr IV .[id number] [facility] Stop: 10/06/24 23:44 Last Admin: 09/07/24 00:21 Dose: 75 mls/hr Dopamine HCl/Dextrose (Intropin In D5w Ivpb) 400 mg in 250 mls @ 21.738 mls/hr IV .[id number] [facility]; Protocol Stop: 10/06/24 23:56 Last Admin: 09/07/24 00:40 Dose: Not Given Ondansetron HCl (Ondansetron Inj 2 Mg/Ml Inj 2 Ml) 4 mg IV Q6H PRN; Protocol PRN Reason: NAUSEA OR VOMITING Stop: 10/06/24 23:53 Last Admin: 09/07/24 15:48 Dose: 4 mg Pantoprazole Sodium (Pantoprazole Inj 40 Mg Vial) 40 mg IVP QDAY [facility] Stop: 10/07/24 08:59 Last Admin: 09/07/24 10:01 Dose: 40 mg Assessment & Plan Plan Patient is a 74 years old female with PMH of HFpEF with EF of 55-60%, history of bradycardia, 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 She was admitted for further evaluation and possible pacemaker placement, cardiology consulted. #Symptomatic bradycardia. #Third degree AV block. - Patient has previous history of bradycardia, was previously recommended to have a pacemaker placed but refused. - In the ED EKG showed third degree AV block. Patient reported worsening weakness and multiple falls due to it. - She was admitted to ICU and started on low dose dopamine drip, maintaining HR 45-55 BPM, asymptomatic at rest. Plan: - Continue dopamine drip. - Biventricular pacemaker placement in the morning. NPO after midnight. #HFpEF with EF of 50-55%. #Hypertension. #Hyperlipidemia. #Hx of CVA. - Echo was done showed normal left ventricular size and function, approximate ejection fraction is 50-55%. Echo from 2022 showed EF 55-60%. - at home she is taking aspirin, atorvastatin, furosemide, hydralazine and lisinopril. Plan: - Hold aspirin in anticipation of pacemaker placement. - Resume home atorvastatin, furosemide, hydralazine and lisinopril. - Optimize GDMT as tolerated prior to discharge. Management of other problems as per primary team. Plan of care discussed with attending Dr. Aggarwal. Ministerio Bourgeois MD, PGY 2. Disclaimer: This note was dictated by speech recognition. Minor errors in corporate law assistant may be present due to voice recognition software.
[2024-09-07] MEDS: MELATONIN 3 MG TABLET PO (21:10)
[2024-09-07] MEDS: traZODone HCL 50 MG TABLET PO (21:10)
[2024-09-07] MEDS: DOPamine/D5w 400 MG IVPB 400 MG/250 ML BAG 30.434 MG IV (23:00)
--- NOTE | 2024-09-07 23:54 | ECHO_ITS ---
Transthoracic Echo Report Ht (in): 65 Wt (lb): 255 Exam Location: Portable Status: Inpatient Operator: IRVIN Chirinos^^^^ Indications: Procedure Performed: BP: / HR: 68 Rhythm: Atrial flutter Technical Quality: Technically difficult study MEASUREMENTS (Male / Female) Normal Values 2D ECHO LV Diastolic Diameter PLAX 3.9 cm 4.2 - 5.9 / 3.9 - 5.3 cm LV Systolic Diameter PLAX 2.7 cm IVS Diastolic Thickness 1.3 cm 0.6 - 1.0 / 0.6 - 0.9 cm LVPW Diastolic Thickness 1.2 cm 0.6 - 1.0 / 0.6 - 0.9 cm LV Relative Wall Thickness 0.6 LVOT Diameter 1.8 cm Aortic Root Diameter 3.0 cm LA Systolic Diameter LX 4.2 cm 3.0 - 4.0 / 2.7 - 3.8 cm Ascending Aorta Diameter 4.5 cm DOPPLER AV Peak Velocity 211.7 cm/s AV Peak Gradient 17.9 mmHg AV Mean Gradient 7.0 mmHg AV Velocity Time Integral 39.9 cm LVOT Peak Velocity 97.9 cm/s LVOT Peak Gradient 3.8 mmHg LVOT Velocity Time Integral 26.3 cm LVOT Cardiac Index 1925.0 cm?/min?m? AV Area Cont Eq vti 1.7 cm? AV Area Cont Eq pk 1.2 cm? MV Peak Velocity 129.0 cm/s MV Peak Gradient 6.7 mmHg MV Mean Velocity 101.0 cm/s MV Mean Gradient 5.0 mmHg MV Area PHT 4.9 cm? Mitral E Point Velocity 113.0 cm/s Mitral A Point Velocity 150.0 cm/s Mitral E to A Ratio 0.8 LV E' Lateral Velocity 8.3 cm/s Mitral E to LV E' Lateral Ratio 13.6 LV E' Septal Velocity 8.1 cm/s Mitral E to LV E' Septal Ratio 14.0 TR Peak Velocity 244.5 cm/s TR Peak Gradient 23.9 mmHg PV Peak Velocity 142.0 cm/s PV Peak Gradient 8.1 mmHg RVOT Peak Velocity 81.3 cm/s FINDINGS Left Ventricle Normal left ventricular size, wall thickness, systolic function with no obvious regional wall motion abnormalities. There is grade I diastolic dysfunction of the left ventricle (impaired relaxation pattern). The left ventricular ejection fraction is normal, estimated at 55%. Right Ventricle The right ventricle is normal in size and systolic function. The estimated right ventricular systolic pressure, 25 mmHg. Left Atrium The left atrial cavity size is mildly increased. Right Atrium The right atrium is normal by two-dimensional imaging, color flow and Doppler imaging with no structural abnormalities, no thrombus formation present. Atrial Septum The interatrial septum appears normal with no evidence of a shunt. Aorta The aorta is normal by two-dimensional, color flow and Doppler interrogation. Mitral Valve Mild mitral regurgitation. Mild mitral annular calcification. Aortic Valve Aortic valve sclerosis. Diffuse calcification of the aortic valve. Tricuspid Valve There is mild tricuspid valve regurgitation. Pulmonic Valve Trivial pulmonic valve regurgitation. Vessels The pulmonary artery appears normal. The inferior vena cava pulmonary and hepatic veins appear normal. Pericardium The pericardium is normal by two-dimensional imaging. There is no significant pericardial effusion. CONCLUSIONS indication: HFpEF Normal left ventricular size and function. Approximate ejection fraction is 50-55%. RV appears normal with RVSP 25 mmHg. LA is mildly dilated. AOV sclerosis nomstenosis Trace mitral and trace tricuspid regurgitation Harmony Matos (Electronically Signed) Final Date: 07 Sep 2024 15:04
[2024-09-08] VITALS (98 sets, daily range): BP systolic 77–177; BP diastolic 46–102; PULSE 40–67; RESP 0–98; TEMP 36.1–37; O2SAT 92–100; BMI 42.2
[2024-09-08 06:22] LABS: Basophils % (Auto) 1 % (0-2.5); Eosinophils # (Auto) 0.2 Thou/mm3 (0.0-0.5); Eosinophils % (Auto) 3 % (0-10); Hematocrit 41.2 % (36.0-46.0); Hemoglobin 14.1 g/dL (12.0-16.0); Immature Granulocytes % (Auto) 0 % (0-0); Immature Granulocytes Auto 0.02 Thou/mm3 (0.00-0.00); Lymphocytes # (Auto) 1.2 Thou/mm3 (1.0-4.8); Lymphocytes % (Auto) 20 % (10-50); Mean Corpuscular HGB Conc 34.2 g/dl (31.0-37.0); Mean Corpuscular Hemoglobin 29.1 pg (25.0-35.0); Mean Corpuscular Volume 85 fL (80-100); Monocytes # (Auto) 0.5 Thou/mm3 (0.0-0.8); Monocytes % (Auto) 9 % (0-12); Neutrophils % (Auto) 68 % (37-80); Nucleated Red Blood Cell % 0 /100 WBC (0); Platelet Count 87 Thou/mm3 (140-440); RDW Standard Deviation 43.1 fL (36.4-46.3); Red Blood Count 4.85 Miln/mm3 (4.00-5.20); White Blood Count 5.8 Thou/mm3 (3.6-11.0)
[2024-09-08 06:58] LABS: Alanine Aminotransferase < 7 U/L (10-49); Albumin, Serum 4.1 gm/dL (3.4-4.8); Albumin/Globulin Ratio 1.4 (1.2-2.2); Alkaline Phosphatase 85 U/L (46-116); Anion Gap 10 (7-16); Aspartate Amino Transferase 12 U/L (0-34); BUN/Creatinine Ratio 19 Ratio (12-20); Bilirubin,Total 0.7 mg/dL (0.3-1.2); Blood Urea Nitrogen 29 mg/dL (9-23); Calcium 9.2 mg/dL (8.3-10.6); Calcium (Corrected) 9.2 mg/dL (8.5-10.1); Chloride 104 mMol/L (98-107); Creatinine (Component) 1.5 mg/dL (0.6-1.3); Estimated Creatinine Clearance 42.3 mL/min (>60); Globulin 2.9 gm/dL (2.3-3.5); Glucose 145 mg/dL (74-106); Osmolality,Calculated 290 (275-295); Potassium 4.6 mMol/L (3.4-5.1); Sodium 141 mMol/L (136-145); eGFR 37 See Note
[2024-09-08] MEDS: DOPamine/D5w 400 MG IVPB 400 MG/250 ML BAG 30.434 MG IV (07:20)
--- NOTE | 2024-09-08 07:45 | PC.NURSE ---
Learning And Development Analyst Procedure - pt off unit for pacemaker placement
--- NOTE | 2024-09-08 09:27 | XR_ITS ---
Examination: AP chest single view Technique one AP upright portable chest single view Date and time: September 08, 2024 0950 hours Comparison September 06, 2024 INDICATIONS: Postop pacemaker insertion. FINDINGS: Transvenous dual-chamber bipolar cardiac leads satisfactory position Moderate enlargement cardiac contour No pneumothorax Pulmonary vascular redistribution IMPRESSION: Cardiac leads satisfactory position
[2024-09-08] MEDS: MIDODRINE 5 MG TABLET 10 MG PO (09:45)
[2024-09-08] MEDS: VANCOMYCIN/NS 1 GM IVPB 200 ML IV (09:48)
--- NOTE | 2024-09-08 09:58 | ESPR_ITS ---
<Statement entered by Jomar Siu MD - 09/09/24 10:08> TOTAL CC TIME: 35 MIN I saw and evaluated the patient. I reviewed the resident?s note and agree with findings and plan as documented in the resident?s note. Upon my evaluation, this patient had a high probability of imminent or life- threatening deterioration due to bradycardia on dopamine which required my direct attention, intervention, and personal management. This time is exclusive of time spent on procedures, which are documented separately if performed. Anticipate the dopamine will be stopped post pacemaker. Otherwise current hemodynamics are acceptable. Patient has no new acute complaints Documentation for date of: 09/08/24 Subjective Subjective Interval history: Ms. 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 Patient states for the last 2 to 3 weeks she has been having increased amount of falls 5 episodes of falls. She denies any preceding aura, lightheadedness, passing out, chest pain, shortness of breath, dizziness or any other associated symptoms with the fall. But she does state that she has noticed that she has become weaker requiring assistance to get to the bedside commode. She was previously recommended to have a pacemaker placed but refused because she wanted to attend physical rehabilitation following her CVA. She denies any relevant family history of heart conditions. She currently states that she is wanting a pacemaker now and rehabilitation to improve her functional status. In the ER, vital signs were recorded as temp 97.9 ?F, HR 50 bpm, RR 17, BP 126/73 mmHg, BMI 42, and GCS 15. Lab results revealed WBC 6.6, Hb 13.3, PLT 84, Na 140, K 4.5, Cl 108, BUN 53, creatinine 2.2, eGFR 29, and glucose 153. CXR showed mild to moderate enlargement of the cardiac contour, with no pneumothorax, pulmonary contusion, or hemothorax. EKG demonstrated second-degree AV block, Mobitz type I, rate 46. Admit for further evaluation; pacemaker placement is pending cardiology review. 09/07/24: Patient was seen and examined in the ICU. She continues to be on the dopamine drip at 5mcg/kg/hr and maintaining a stable rate in the high 50s low 60s. Repeat EKG showed very prolonged LA interval resembling first degree av block however she has strips where patient seems to go in and out of 3rd degree block. Spoke to cardio team and patient will be scheduled for pacemaker insertion tomorrow. We will feed her today. She is requiring increased O2 to keep saturation above 92 because of pulmonary edema as seen by her congested Xray and US that reveals bilateral B lines without signs of pleural effusion. Will DC maintenance fluids and encourage oral intake. 09/08/2024: Patient was seen and examined in the ICU today. There were no major overnight events and patient no complaints this morning. She was kept n.p.o. overnight for procedure this morning which she went to early in the morning. She continues to be on the dopamine drip but will likely discontinue once her pacemaker has been successfully placed. Patient will be downgraded to telemetry and care will be taken over by primary team who is Dr De Leon. Her renal function is back to baseline with a creatinine 1.5. Appreciate collaboration Exam Vital Signs Temp Pulse Resp BP Pulse Ox O2 Del Method O2 Flow Rate 98.2 F 60 18 106/56 L 97 Nasal Cannula 1 09/08/24 07:56 09/08/24 09:45 09/08/24 07:56 09/08/24 09:45 09/08/24 07:56 09/08/24 07:56 09/08/24 07:56 Narrative Exam Constitutional: Well nourished and in no acute distress Neck: Supple to palpation, No JVD CVS: RRR, S1 and S2 present, no murmurs, rubs or gallops . RESP: CTAB, no SOB, no rales, rhonchi or wheezing. No respiratory Distress GI: Normal BS, Nontender/Nondistended. MSK: Full range of motion, No trauma or deformities or masses. Skin: Warm to touch, Dry. No rashes or lesions. No hematomas Neuro: television analyzer II-XII grossly intact. Sensation grossly intact. Psych: (AAO) x3 . Appropriate mood and affect. Objective Labs 09/08/24 04:36 09/08/24 04:36 Labs: Laboratory Results - last 24 hr 09/08/24 04:36 WBC 5.8 RBC 4.85 Hgb 14.1 Hct 41.2 MCV 85 MCH 29.1 MCHC 34.2 RDW Std Deviation 43.1 Plt Count 87 L Neut % (Auto) 68 Lymph % (Auto) 20 [place] % (Auto) 9 Eos % (Auto) 3 Baso % (Auto) 1 Neut # (Auto) 4.0 Lymph # (Auto) 1.2 [place] # (Auto) 0.5 Eos # (Auto) 0.2 Baso # (Auto) 0.0 Immature Gran # (Auto) 0.02 H Absolute Nucleated RBC 0.00 Immature Gran % 0 Nucleated RBC % 0 Sodium 141 Potassium 4.6 D Chloride 104 Carbon Dioxide 27.0 Anion Gap 10 BUN 29 H Creatinine 1.5 H D Estim Creat Clear Calc 42.3 L eGFR 37 L BUN/Creatinine Ratio 19 Glucose 145 H Calculated Osmolality 290 Calcium 9.2 Corrected Calcium 9.2 Total Bilirubin 0.7 AST 12 ALT < 7 L Alkaline Phosphatase 85 Total Protein 7.0 Albumin 4.1 Globulin 2.9 Albumin/Globulin Ratio 1.4 Quality Measures Quality Measures VTE prophylaxis Advance care planning discussed with:: patient Assessment & Plan Assessment Current Active Medications: Generic Name Dose Route Start Last Admin Trade Name Freq PRN Reason Stop Dose Admin Acetaminophen 650 mg 09/06/24 23:54 Acetaminophen 325 Mg Tablet PO 10/06/24 23:53 Q6H PRN PAIN SCALE 1-3 (mild Dopamine HCl/Dextrose 400 mg in 250 mls @ 21.738 mls/hr 09/07/24 00:07 09/08/24 07:20 Intropin In D5w Ivpb IV 10/06/24 23:56 7 mcg/kg/min .[id number] FAN 30.434 mls/hr Administration Protocol 5 MCG/KG/MIN Vancomycin/Sodium Chloride 200 mls @ 120 mls/hr 09/08/24 09:30 09/08/24 09:48 Vancomycin/Ns 1 Gm Ivpb IV 09/08/24 11:09 120 mls/hr X1 ONE Administration Melatonin 3 mg 09/07/24 21:05 09/07/24 21:10 Melatonin 3 Mg Tablet PO 10/07/24 21:04 3 mg HS FAN Administration Sennosides 1 tab 09/07/24 09:00 09/08/24 08:37 Senna Tablet PO 10/07/24 08:59 Not Given QDAY [facility] Protocol Trazodone HCl 50 mg 09/07/24 21:05 09/07/24 21:10 Trazodone Hcl 50 Mg Tablet PO 10/07/24 21:04 50 mg HS FAN Administration Plan 74-year-old female with past medical history of HFpEF with EF of 65%, previous history of bradycardia, generalized weakness, 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 Neurology Problem: Insomnia/difficulty sleeping Treatment plan: Patient takes trazodone 50 mg p.o. at bedtime which we'll discontinue as it can cause cardiac arrhythmias Cardiovascular Problem: Symptomatic bradycardia DDx: EKG reveals A-fib with slow ventricular rate. Previous history of Mobitz type I Diagnostic Test: EKG reveals AFIB with rate of 46. Appears chronic. REPEAT EKG revealed prolonged LA interval. Treatment Plan: Start dopamine drip, titrate to keep heart rate above 40, cardiology consultation ordered, cardiac echo exam ordered Treatment Review: Patient currently is asymptomatic and stable on dopamine drip which will be discontinued once she completes her pacemaker insertion today. #HFpEF 50 to 55% Echocardiogram Revealed a EF of 50 to 55% normal right ventricular pressure with trace mitral and trace tricuspid regurg Restart patient's home Lasix upon discharge and continue her aspirin and atorvastatin Problem: Hypertension Diagnostic test: Monitor vital signs every hour Treatment plan: Patient takes lisinopril 40 Mg p.o. daily, Lasix 40 Mg p.o. daily hydralazine. Will resume medications after the pacemaker has been inserted to avoid BP instability with bradycardia Respiratory Problem: AHRF?improving Secondary to pulmunary edema CXR revealed vascular congestion and bedside US revealed B lines. Patient received 40 mg of Lasix p.o. yesterday Oxygenation has improved today as she is satting 97% on 1 L nasal cannula she can virtually come off of the oxygen support GI and F/E/N Problem: Cardiac diet Renal Problem: BOOGIE on CKD?resolved DDx: May be secondary to decreased p.o. intake and generalized weakness. Unlikely to be postrenal in the fact patient has not had difficulty with urination or dysuria. CKD may be in the setting of longstanding hypertension Diagnostic Test: Monitor with daily labs. Currently creatinine 2.1 and baseline is 1.5-1.6 Treatment Plan: Patient is back to baseline. Heme Problem: Stable Endo Problem: Stable. A1c 5.4 ID Problem: Stable DVT prophylaxis: SCDs GI prophylaxis: SCDs Diet: Will restart cardiac diet after the procedure [place]: Not indicated Lines: Peripheral IVs Drips: Will DC dopamine after the procedure Vent: N/A CODE STATUS: DNR/DNI Patient will be downgraded to telemetry once her pacemaker is inserted and downgraded back to primary team. Plan of care discussed with supervising attending Dr. Sherron Aguero MD PGY-3
--- NOTE | 2024-09-08 11:40 | PC.NURSE ---
0936 patient is awake, alert, breathing unlabored, s/p Pacemaker insertion to left chest, dressing dry with no bleeding or hematoma. Report received from Lina DIALLO, patient to have midodrine PO now and see if BP remains stable, if MAP goes below 65, re start dopamine drip. Vancomycin IV ordered, XRay ordered, Arm sling to be in place for 24 hours to left arm. Dopamin drip paused in culture media laboratory assistant OR at 0922 per MD request, on hold for now until we see how blood pressure is in culture media laboratory assistant recover. Pharmacy called to bring vanco and midodrine medications, xray department called to do chest xray. 0945 Midodrine PO given 0947 chest xray completed 0950 patient soaked in urine and wet, patient cleaned, linen changed. 1013 Dopamine drip re started at 3mcg/kg/min 1129 vancomycin antibiotic completed, report given to Paige DIALLO, covering nurse for Jose. 1140 patient is awake, alert, breathing unlabored, dressing to left chest dry with no bleeding, arm sling present to left arm. Patient transferred back to room 274 with ICU monitoring device. Dopamine drip ongoing 3mcg/kg/hr
--- NOTE | 2024-09-08 11:42 | ESOP_ITS ---
RE: BUDDY DICK : 1950 DATE OF OPERATION: 09/08/2024 PROCEDURE PERFORMED: Implantation of dual-chamber AV sequential permanent pacemaker, CPT code 10315. PREOPERATIVE DIAGNOSES: Complete heart block, third-degree atrioventricular block, recurrent syncope, near syncope, and falls. POSTOPERATIVE DIAGNOSES: Successful implantation of dual-chamber atrioventricular sequential permanent pacemaker by [employer]. SEDATION: Conscious sedation, local anesthesia. HISTORY AND INDICATIONS: The patient is a 74-year-old female with a past medical history of hypertension, intermittent second-degree Mobitz type 2 heart block, syncopal episodes, who refused her pacemaker, presented to the hospital again with syncopal episodes, frequent falling, heart rate of 35 beats per minute. She was found to be in third-degree complete heart block with AV dissociation, ventricle and junctional escaped rate of 38 to 40 beats per minute, requiring IV dopamine. The patient has symptomatic bradycardia, complete heart block, class 1 indication for permanent pacemaker implantation. He has dual chamber AV sequential permanent pacemaker implant is recommended. DESCRIPTION OF PROCEDURE: The patient was brought to cardiac catheterization laboratory. She was given conscious sedation, 2 mg Versed and 50 mcg of fentanyl. Left subclavian area prepped in a sterile fashion in 1% Xylocaine local was given. Left subclavian vein was cannulated by micropuncture technique and two guidewire was introduced. A linear incision was made with blunt dissection. Pocket was created. A 6-Czech sheath was introduced. A 6-Czech [employer] atrial ventricular active fixation leads advanced to the right atrial appendage, right ventricular apex, active fixation leads were used and thresholds were found to be excellent. After obtaining satisfactory threshold, both leads were anchored to the pectoralis fascia with 2-0 silk suture. [employer] dual chamber MRI safe dual chamber pacemaker generator attached to the leads, positioned in the pocket and 2-0 silk suture was used to secure the device to the pectoral fascia. Antibiotic solution was used to cleansed the pocket. The device was placed in the pocket. Subcutaneous tissue was closed using 2-0 chromic continuous sutures. Skin was closed using marco a. The patient had no complications. Preop antibiotic, 1 g Ancef was given. Postop 1 g vancomycin was given. Chest x-ray was obtained post procedure. Pneumothorax was ruled out. The device details are as follows: The device that is implanted today is manufactured by [employer]. Model number is Accolade MRI safe L311, serial number is [id number]. The atrial lead is 45 cm, [employer] 7840 model number and serial number is [id number]. The ventricle lead is 52 cm length, model number is 7841, serial number is [id number]. The device is programmed to dual chamber mode DDD and rate of 60 lower rate limit, upper rate of 130. The thresholds are as follows: Atrial threshold previously 2.4 millivolts and lead impedance 494, current 1.6 milliampere, threshold 0.8 volts. RVs are measured 11 millivolts, threshold 0.9 volt, impedance 966 ohms, current of 0.9 milliampere. FINAL SUMMARY: Successful implantation of dual chamber AV sequential permanent pacemaker. No complications. ESTIMATED BLOOD LOSS: Less than 5 mL. cc: Elena De Leon MD DT: 10:38:15 TT: 11:40:00 Ref: [id number] - TID: [id number]
--- NOTE | 2024-09-08 12:00 | PC.SS ---
Update: Patient obtained pacemaker today.
--- NOTE | 2024-09-08 12:43 | PC.NURSE ---
pt returned from pharmaceutical laboratory technician @[phone]
--- NOTE | 2024-09-08 13:41 | ESPR_ITS ---
<Statement entered by Natasha Aggarwal MD - 09/11/24 07:48> I evaluated the patient examined the patient appears to be doing clinically quite well now pacemaker implant is successful patient not have any issues patient can be transferred telemetry agree with the treatment plan recommendation as documented by Dr. Mandel PGY 2 Documentation for date of: 09/08/24 Subjective Subjective Interval history: Patient was seen and examined at the bedside in ICU. No acute overnight events. Patient underwent pacemaker implantation today without complications. Her heart rate right now at 60 bpm. She denies any complaints, her blood pressure 131/73. Site of pacemaker implantation appears clean and nontender. Patient will be downgraded today to telemetry for continuation of care. From cardiology standpoint patient can be discharged. Recommended Keflex 500 mg BID for 7 days on discharge. Patient will need to come back to cardiology office to remove marco a in 7 days. Exam Vital Signs Temp Pulse Resp BP Pulse Ox O2 Del Method O2 Flow Rate 97 F 60 19 131/73 H 100 Nasal Cannula 2 09/08/24 10:45 09/08/24 13:00 09/08/24 13:00 09/08/24 13:00 09/08/24 13:00 09/08/24 10:45 09/08/24 10:45 Narrative Exam Gen: Well-developed and well-nourished elderly female. HEENT: NCAT, PERRLA, EOMI, MMM, anicteric conjunctivae. CVS: normal S1 and S2. RRR. Systolic murmur over aortic area. Pacemaker in the left upper chest, appears clean. Resp: CTA B/L. No rhonchi, rales, crackles or wheezing. Abd: soft, obese, non-tender, non-distended. BS+ in all 4 quadrants. MSK: Good ROM in BUE & BLE. No edema or rash. Neuro: CN II-XII grossly intact. Strength 5/5 in BUE & BLE. Alert and oriented x3. Psych: appropriate mood and affect. Objective Labs 09/08/24 04:36 09/08/24 04:36 Labs: Laboratory Results - last 24 hr 09/08/24 04:36 WBC 5.8 RBC 4.85 Hgb 14.1 Hct 41.2 MCV 85 MCH 29.1 MCHC 34.2 RDW Std Deviation 43.1 Plt Count 87 L Neut % (Auto) 68 Lymph % (Auto) 20 [place] % (Auto) 9 Eos % (Auto) 3 Baso % (Auto) 1 Neut # (Auto) 4.0 Lymph # (Auto) 1.2 Lamb # (Auto) 0.5 Eos # (Auto) 0.2 Baso # (Auto) 0.0 Immature Gran # (Auto) 0.02 H Absolute Nucleated RBC 0.00 Immature Gran % 0 Nucleated RBC % 0 Sodium 141 Potassium 4.6 D Chloride 104 Carbon Dioxide 27.0 Anion Gap 10 BUN 29 H Creatinine 1.5 H D Estim Creat Clear Calc 42.3 L eGFR 37 L BUN/Creatinine Ratio 19 Glucose 145 H Calculated Osmolality 290 Calcium 9.2 Corrected Calcium 9.2 Total Bilirubin 0.7 AST 12 ALT < 7 L Alkaline Phosphatase 85 Total Protein 7.0 Albumin 4.1 Globulin 2.9 Albumin/Globulin Ratio 1.4 Quality Measures Quality Measures VTE prophylaxis Advance care planning discussed with:: patient Assessment & Plan Assessment Current Active Medications: Generic Name Dose Route Start Last Admin Trade Name Freq PRN Reason Stop Dose Admin Acetaminophen 650 mg 09/06/24 23:54 Acetaminophen 325 Mg Tablet PO 10/06/24 23:53 Q6H PRN PAIN SCALE 1-3 (mild Dopamine HCl/Dextrose 400 mg in 250 mls @ 21.738 mls/hr 09/07/24 00:07 09/08/24 12:32 Intropin In D5w Ivpb IV 10/06/24 23:56 0 mcg/kg/min .[id number] FAN 0 mls/hr Titration Protocol 5 MCG/KG/MIN Melatonin 3 mg 09/07/24 21:05 09/07/24 21:10 Melatonin 3 Mg Tablet PO 10/07/24 21:04 3 mg HS FAN Administration Sennosides 1 tab 09/07/24 09:00 09/08/24 08:37 Senna Tablet PO 10/07/24 08:59 Not Given QDAY FAN Protocol Trazodone HCl 50 mg 09/07/24 21:05 09/07/24 21:10 Trazodone Hcl 50 Mg Tablet PO 10/07/24 21:04 50 mg HS FAN Administration Plan Patient is a 74 years old female with PMH of HFpEF with EF of 55-60%, history of bradycardia, 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 She was admitted for further evaluation and possible pacemaker placement, cardiology consulted. #Symptomatic bradycardia, resolved. #Third degree AV block, s/p dual chamber pacemaker implantation 09/08/2024. - Patient has previous history of bradycardia, was previously recommended to have a pacemaker placed but refused. - In the ED EKG showed third degree AV block. Patient reported worsening weakness and multiple falls due to it. - She was admitted to ICU and started on low dose dopamine drip, maintaining HR 45-55 BPM, asymptomatic at rest. Plan: - Discontinued dopamine drip. - Can be discharged with Keflex 500 mg PO BID for 7 days, follow up in 7 days for marco a removal. #HFpEF with EF of 50-55%. #Hypertension. #Hyperlipidemia. #Hx of CVA. - Echo was done showed normal left ventricular size and function, approximate ejection fraction is 50-55%. Echo from 2022 showed EF 55-60%. - at home she is taking aspirin, atorvastatin, furosemide, hydralazine and lisinopril. Plan: - Resume home aspirin, atorvastatin, furosemide, hydralazine and lisinopril. Management of other problems as per primary team. Plan of care discussed with attending Dr. Aggarwal. Ministerio Bourgeois MD, PGY 2. Disclaimer: This note was dictated by speech recognition. Minor errors in egg tester may be present due to voice recognition software.
--- NOTE | 2024-09-08 14:31 | ESPR_ITS ---
Documentation for date of: 09/08/24 Subjective Subjective Interval history: Ms. 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 Patient states for the last 2 to 3 weeks she has been having increased amount of falls 5 episodes of falls. She denies any preceding aura, lightheadedness, passing out, chest pain, shortness of breath, dizziness or any other associated symptoms with the fall. But she does state that she has noticed that she has become weaker requiring assistance to get to the bedside commode. She was previously recommended to have a pacemaker placed but refused because she wanted to attend physical rehabilitation following her CVA. She denies any relevant family history of heart conditions. She currently states that she is wanting a pacemaker now and rehabilitation to improve her functional status. In the ER, vital signs were recorded as temp 97.9 ?F, HR 50 bpm, RR 17, BP 126/73 mmHg, BMI 42, and GCS 15. Lab results revealed WBC 6.6, Hb 13.3, PLT 84, Na 140, K 4.5, Cl 108, BUN 53, creatinine 2.2, eGFR 29, and glucose 153. CXR showed mild to moderate enlargement of the cardiac contour, with no pneumothorax, pulmonary contusion, or hemothorax. EKG demonstrated second-degree AV block, Mobitz type I, rate 46. Admit for further evaluation; pacemaker placement is pending cardiology review. Nephrology consulted for management of BOOGIE on CKD, Dr. De Leon is patient's senior geotechnical engineer//PCP. Patient seen and examined at bedside, resting comfortably. Endorses multiple falls with increasing weakness each fall, some dizziness. Patient does deny chest pain, shortness of breath, prodrome before falls, fever, chills, nausea, vomiting. Patient currently on dopamine drip with pacer pads. Dr. Aggarwal consulted for pacemaker placement. Sodium 140, potassium 4.1, bicarb 26.3, BUN 47, creatinine 2.0, EGFR 26. Kidney function improving, patient appears clinically dry on exam. On lactated Ringer's at 75 cc/h. 09/08/2024: Patient seen examined at bedside, resting comfortably. Had pacemaker implantation today, procedure went well. Currently monitoring shows paced rhythm at 60 bpm. Patient denies chest pain, shortness of breath, nausea, vomiting, fever, chills. Hemoglobin 14.1. Sodium 141, potassium 4.6, bicarb 27, BUN 29, creatinine 1.5, EGFR 37. IVF discontinued, encourage oral hydration. Possible DC tomorrow. Exam Vital Signs Temp Pulse Resp BP Pulse Ox O2 Del Method O2 Flow Rate 97 F 60 16 131/73 H 100 Nasal Cannula 2 09/08/24 10:45 09/08/24 14:14 09/08/24 14:14 09/08/24 13:00 09/08/24 13:00 09/08/24 10:45 09/08/24 10:45 Narrative Exam PE: Gen: Well-developed and well-nourished. HEENT: NCAT, PERRLA, EOMI, MMM, anicteric conjunctivae. CVS: normal S1 and S2. No M/R/G. Paced rhythm. Pacemaker implanted, site dry, nonerythematous, nontender. Resp: CTA B/L. No rhonchi, rales, crackles or wheezing. Abd: soft, non-tender, non-distended. BS+ in all 4 quadrants. MSK: Good ROM in BUE & BLE. No edema or rash. Neuro: CN II-XII grossly intact. Strength 5/5 in BUE & BLE. Alert and oriented x3. Psych: appropriate mood and affect. Objective Labs 09/09/24 05:19 09/08/24 04:36 Labs: Laboratory Results - last 24 hr 09/08/24 04:36 WBC 5.8 RBC 4.85 Hgb 14.1 Hct 41.2 MCV 85 MCH 29.1 MCHC 34.2 RDW Std Deviation 43.1 Plt Count 87 L Neut % (Auto) 68 Lymph % (Auto) 20 [place] % (Auto) 9 Eos % (Auto) 3 Baso % (Auto) 1 Neut # (Auto) 4.0 Lymph # (Auto) 1.2 [place] # (Auto) 0.5 Eos # (Auto) 0.2 Baso # (Auto) 0.0 Immature Gran # (Auto) 0.02 H Absolute Nucleated RBC 0.00 Immature Gran % 0 Nucleated RBC % 0 Sodium 141 Potassium 4.6 D Chloride 104 Carbon Dioxide 27.0 Anion Gap 10 BUN 29 H Creatinine 1.5 H D Estim Creat Clear Calc 42.3 L eGFR 37 L BUN/Creatinine Ratio 19 Glucose 145 H Calculated Osmolality 290 Calcium 9.2 Corrected Calcium 9.2 Total Bilirubin 0.7 AST 12 ALT < 7 L Alkaline Phosphatase 85 Total Protein 7.0 Albumin 4.1 Globulin 2.9 Albumin/Globulin Ratio 1.4 Quality Measures Quality Measures VTE prophylaxis Advance care planning discussed with:: patient Assessment & Plan Assessment Current Active Medications: Generic Name Dose Route Start Last Admin Trade Name Freq PRN Reason Stop Dose Admin Acetaminophen 650 mg 09/06/24 23:54 Acetaminophen 325 Mg Tablet PO 10/06/24 23:53 Q6H PRN PAIN SCALE 1-3 (mild Dopamine HCl/Dextrose 400 mg in 250 mls @ 21.738 mls/hr 09/07/24 00:07 09/08/24 12:32 Intropin In D5w Ivpb IV 10/06/24 23:56 0 mcg/kg/min .[id number] FAN 0 mls/hr Titration Protocol 5 MCG/KG/MIN Melatonin 3 mg 09/07/24 21:05 09/07/24 21:10 Melatonin 3 Mg Tablet PO 10/07/24 21:04 3 mg HS FAN Administration Sennosides 1 tab 09/07/24 09:00 09/08/24 08:37 Senna Tablet PO 10/07/24 08:59 Not Given QDAY FAN Protocol Trazodone HCl 50 mg 09/07/24 21:05 09/07/24 21:10 Trazodone Hcl 50 Mg Tablet PO 10/07/24 21:04 50 mg HS FAN Administration Plan 74-year-old female with past medical history of HFpEF with EF of 65%, previous history of bradycardia, generalized weakness, 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 #BOOGIE on CKD Likely prerenal, patient is dry on exam and renal function proved with IVF. May be secondary to decreased p.o. intake and generalized weakness. Unlikely to be postrenal, patient has not had difficulty with urination or dysuria. CKD may be in the setting of longstanding hypertension. Currently creatinine 2.1 and baseline is 1.5-1.6. Kidney function improved after IVF. Patient tolerating oral intake well. - Avoid nephrotoxins - Monitor daily labs - Renally dose meds - Encourage oral hydration #Symptomatic bradycardia//third-degree block s/p pacemaker implantation EKG reveals A-fib with slow ventricular rate. Previous history of Mobitz type I. Patient was offered pacemaker in the past however declined. Patient is now open to receiving pacemaker settings symptomatic bradycardia. EKG reveals AFIB with rate of 46. Appears chronic. REPEAT EKG revealed prolonged IA interval. Patient admitted to ICU and was started on dopamine drip, has transcutaneous pacer pads. Cardiology consulted with plan to implant pacemaker. Pacemaker implanted, procedure well-tolerated. Cardiac monitoring shows paced rhythm at 60 bpm. - Cardiology following, appreciate recommendations - Will receive care of patient once downgraded from ICU - Cardiac monitoring #HFpEF 50 to 55% Echocardiogram Revealed a EF of 50 to 55% normal right ventricular pressure with trace mitral and trace tricuspid regurg. - Restart patient's home Lasix, aspirin, atorvastatin upon discharge #Hypertension Patient history of hypertension. Takes home lisinopril, Lasix, hydralazine. Medications held to avoid BP instability due to bradycardia. -Consider resuming home meds #Insomnia/difficulty sleeping Patient takes trazodone for sleep, however can cause cardiac arrhythmias. Currently held. - Monitor DVT prophylaxis: SCDs Diet: Cardiac, renal Lines: Peripheral IVs CODE STATUS: DNR/DNI Plan of care discussed with attending Dr. De Leon. Charles Phillips MD PGY?1 Attending Provider Attestation/Addendum Patient seen and examined with resident physician Dr. Boogie. Note reviewed, agree with findings and recommendations. Well-known to me from my clinic as she is one of her primary patients. Admitted with symptomatic bradycardia and frequent falls. Spoke to Dr. Matos-patient has third-degree block and needs a pacemaker. She is willing to go for pacemaker placement. Currently has external pacer/dopamine. 09/08/2024 patient got her pacemaker this morning with Dr. Matos. Feeling much better. Will plan for discharge tomorrow. Spoke to ICU team-will be downgraded to telemetry.
[2024-09-08] MEDS: traZODone HCL 50 MG TABLET PO (20:07)
[2024-09-08] MEDS: MELATONIN 3 MG TABLET PO (20:07)
[2024-09-09] VITALS (9 sets, daily range): BP systolic 98–137; BP diastolic 47–68; PULSE 60–67; RESP 14–95; TEMP 36.2–36.4; O2SAT 92–98; BMI 43.3; BMI 12.0
[2024-09-09 05:57] LABS: Basophils % (Auto) 1 % (0-2.5); Eosinophils # (Auto) 0.2 Thou/mm3 (0.0-0.5); Eosinophils % (Auto) 3 % (0-10); Hematocrit 34.7 % (36.0-46.0); Hemoglobin 11.5 g/dL (12.0-16.0); Immature Granulocytes % (Auto) 1 % (0-0); Immature Granulocytes Auto 0.03 Thou/mm3 (0.00-0.00); Lymphocytes # (Auto) 1.4 Thou/mm3 (1.0-4.8); Lymphocytes % (Auto) 22 % (10-50); Mean Corpuscular HGB Conc 33.1 g/dl (31.0-37.0); Mean Corpuscular Hemoglobin 29.3 pg (25.0-35.0); Mean Corpuscular Volume 89 fL (80-100); Monocytes # (Auto) 0.6 Thou/mm3 (0.0-0.8); Monocytes % (Auto) 9 % (0-12); Neutrophils # (Auto) 4.2 Thou/mm3 (1.8-7.7); Neutrophils % (Auto) 66 % (37-80); Nucleated Red Blood Cell % 0 /100 WBC (0); Platelet Count 82 Thou/mm3 (140-440); RDW Standard Deviation 46.3 fL (36.4-46.3); Red Blood Count 3.92 Miln/mm3 (4.00-5.20); White Blood Count 6.4 Thou/mm3 (3.6-11.0)
[2024-09-09 06:37] LABS: Alanine Aminotransferase < 7 U/L (10-49); Albumin, Serum 3.5 gm/dL (3.4-4.8); Albumin/Globulin Ratio 1.3 (1.2-2.2); Alkaline Phosphatase 76 U/L (46-116); Anion Gap 7 (7-16); Aspartate Amino Transferase < 10 U/L (0-34); BUN/Creatinine Ratio 23 Ratio (12-20); Bilirubin,Total 0.5 mg/dL (0.3-1.2); Blood Urea Nitrogen 36 mg/dL (9-23); Calcium 8.7 mg/dL (8.3-10.6); Calcium (Corrected) 9.1 mg/dL (8.5-10.1); Carbon Dioxide 27.2 mMol/L (20.0-31.0); Chloride 105 mMol/L (98-107); Creatinine (Component) 1.6 mg/dL (0.6-1.3); Estimated Creatinine Clearance 40.3 mL/min (>60); Globulin 2.6 gm/dL (2.3-3.5); Glucose 118 mg/dL (74-106); Osmolality,Calculated 286 (275-295); Potassium 4.7 mMol/L (3.4-5.1); Sodium 139 mMol/L (136-145); Total Protein 6.1 gm/dL (5.7-8.2); eGFR 34 See Note
[2024-09-09] MEDS: SENNA TABLET 1 TAB PO (08:06)
--- NOTE | 2024-09-09 09:54 | PC.SS ---
BEACH EXPERT conducted bedside contact with the patient conduct initial assessment and to discuss discharge planning.? Patient confirmed demographic information.? Patient resides at home with daughter, Aaliyah Fulton .? Patient utilizes a walker to assist with ambulation.? Patient does not utilize home oxygen.? Patient requires assistance with completion of ADL?s.? Patient identified daughter, Aaliyah Fulton ; as medical surrogate decision maker.? Patient?s PCP is Dr. Jordan.? Patient utilizes [facility] for medication services.? Patient does not participate with dialysis.? Patient does not possess any specialty providers.? Patient possesses history of diabetes.? Plan is for the patient to transition to SNF upon discharge.? Preferred facility is [facility].? BEACH EXPERT discussed with patient that physical evaluation would be required to obtain authorization from insurance for SNF placement.? If SNF was not authorized could discharge patient home with home health.? supervisor special services will assist the patient with transportation upon discharge.? No further discharge needs identified by the patient.? No further intervention required at this time, social work associate will be available to address any further concerns.? Next of Kin: Aaliyah Donaldo D/C Plan: SNF
--- NOTE | 2024-09-09 10:17 | PC.SS ---
SNF referral submitted on [facility]. Awaiting responses. Preferred SNF is [facility].
--- NOTE | 2024-09-09 10:36 | PC.SS ---
PASSR completed. Patient meets Level II criteria. PASSR follow up is pending.
--- NOTE | 2024-09-09 13:53 | PD.RESDS ---
Planned Discharge Date 09/09/24 DS: Providers Provider Date of admission: 09/06/24 23:22 Primary care physician: Physician No Primary/Family Admitting Provider: Mukesh King MD Attending Provider on Admission: Favian Salazar MD Consults: 09/06/24 22:46 Consult to Cardiology Stat Comment: Consulting Provider: Natasha Aggarwal 09/06/24 22:47 Consult to Nephrology Stat Comment: Consulting Provider: Elena De Leon 09/07/24 00:15 PT [Referral Physical Therapy] Routine Comment: discharge planning will need snf Physician Instructions: 09/07/24 16:30 Referral Wound Care Routine Comment: Attending Provider on DC: Elena De Leon MD Discharging Provider: Charles Phillips MD DS: Diagnosis Problem List Completed Was Problem List Reviewed/Reconciled?: Yes Hospital Course Hospital Course Hospital course: Ms. 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 Patient also had ongoing weakness. On presentation patient noted to have severe bradycardia, as low as 40. Patient placed on dopamine drip and sent to ICU, received implanted pacemaker. Patient feeling much better following pacemaker implantation, with paced rhythm at 60 bpm. Patient cleared for discharge from cardiology perspective. Patient medically stable and cleared for discharge. Discharge plan: You are being discharged on the following medications: - Keflex 500 mg twice daily for 1 week Your Lasix is being held. Please continue taking all other medications as previously prescribed. You will follow-up with Dr. De Leon in 2 weeks. You will follow-up with Dr. Aggarwal in 1 week. Please call to make an appointment: -[address]: [address] [place] [address] - Return to the ED if you develop new or worsening symptoms. Diagnoses: #BOOGIE on CKD #Symptomatic bradycardia//third-degree block s/p pacemaker implantation #HFpEF 50 to 55% #Hypertension #Insomnia/difficulty sleeping Plan of care discussed with attending Dr. De Leon. Charles Phillips MD PGY?1 Status at Discharge Overall status at discharge: patient is progressing back to baseline Time Spent with Patient Time attestation: Total time spent providing and/or coordinating discharge services: Time spent: Greater than 30 minutes Exam Vital Signs Temp Pulse Resp BP Pulse Ox O2 Del Method O2 Flow Rate 97.4 F 60 15 104/51 L 95 Room Air 2 09/09/24 08:00 09/09/24 08:00 09/09/24 08:00 09/09/24 08:00 09/09/24 08:00 09/09/24 08:00 09/09/24 07:56 Narrative Exam PE: Gen: Well-developed and well-nourished. HEENT: NCAT, PERRLA, EOMI, MMM, anicteric conjunctivae. CVS: normal S1 and S2. No M/R/G. Paced rhythm. Pacemaker implanted, site dry, nonerythematous, nontender. Resp: CTA B/L. No rhonchi, rales, crackles or wheezing. Abd: soft, non-tender, non-distended. BS+ in all 4 quadrants. MSK: Good ROM in BUE & BLE. No edema or rash. Neuro: CN II-XII grossly intact. Strength 5/5 in BUE & BLE. Alert and oriented x3. Psych: appropriate mood and affect. Discharge Plan Plan Patient Disposition: Xfer Skilled Nsg Fac (SNF) Patient condition on transfer: Stable Care Plan Goals: You are being discharged on the following medications: - Keflex 500 mg twice daily for 1 week Your Lasix is being held. Please continue taking all other medications as previously prescribed. You will follow-up with Dr. De Leon in 2 weeks. You will follow-up with Dr. Aggarwal in 1 week. Please call to make an appointment: -Address: [address] [place] [address] - Return to the ED if you develop new or worsening symptoms. Prescriptions/Referrals Prescriptions/Med Rec: New cephalexin 500 mg capsule 500 mg PO BID Qty: 14 0RF furosemide 20 mg tablet 20 mg PO QAM Qty: 30 0RF Continued melatonin 10 mg Tablet 10 mg PO HS atorvastatin 80 mg tablet 80 mg PO HS Patient Comments: TAKE ONE TABLET BY MOUTH AT BEDTIME FOR CHOLESTEROL lisinopril 40 mg tablet 40 mg PO QDAY Patient Comments: TAKE ONE TABLET BY MOUTH EVERY DAY FOR BLOOD PRESSURE trazodone 50 mg tablet 50 mg PO HS Patient Comments: TAKE ONE TABLET BY MOUTH AT BEDTIME FOR SLEEP Rx Instructions: 50 mg orally; allopurinol 100 mg tablet 100 mg PO QDAY Patient Comments: TAKE ONE TABLET BY MOUTH EVERY DAY FOR GOUT aspirin 81 mg tablet,delayed release (DR/EC) 81 mg PO QDAY Patient Comments: TAKE ONE TABLET BY MOUTH EVERY DAY FOR THE HEART hydralazine 100 mg tablet 100 mg PO BID Patient Comments: TAKE ONE TABLET BY MOUTH THREE TIMES DAILY WITH FOOD Discontinued furosemide 40 mg tablet 40 mg PO QDAY Patient Comments: TAKE ONE TABLET BY MOUTH EVERY MORNING A DIURETIC Referrals: No Primary/Family,Physician [Primary Care Provider] - Natasha Aggarwal MD [Physician] - Patient/Caregiver Discharge Instructions Discharge Activity: activity as tolerated Education Materials: Pacemakers, Living with a Pacemaker, Discharge Instructions for ..., Understanding Bradycardia, ED Bradycardia Print Language: Bulgarian Activity Restrictions/Additional Instructions: f/u with me post dc Stand Alone Forms: Emily Award Info., Patient Portal Info Letter Discharge Order Discharge Orders: Discharge (Routine); Ordered 09/09/24 Ordered By: Charles Phillips Quality Discharge Quality Measures VTE prophylaxis
--- NOTE | 2024-09-09 16:30 | ESPR_ITS ---
<Statement entered by Natasha Aggarwal MD - 09/11/24 07:54> I personally examined evaluated the patient postop pacemaker implantation no complications doing fairly well patient can be discharged home when she is stable per primary team evaluate the patient with resident physician Dr. Ashby agreed with the treatment plan recommendation Documentation for date of: 09/09/24 Subjective Subjective Interval history: Patient was seen and examined at the bedside. No acute overnight events. Patient reports no complaints. heart rate is at 60. Patient is being discharged today, follow-up with cardiology in 1 week to remove marco a, continue Keflex 500 mg twice daily for 7 days total. Exam Vital Signs Temp Pulse Resp BP Pulse Ox O2 Del Method O2 Flow Rate 97.1 F 60 17 137/68 H 98 Room Air 2 09/09/24 12:00 09/09/24 12:00 09/09/24 12:00 09/09/24 12:00 09/09/24 12:00 09/09/24 12:00 09/09/24 07:56 Narrative Exam Gen: Well-developed and well-nourished elderly female. HEENT: NCAT, PERRLA, EOMI, MMM, anicteric conjunctivae. CVS: normal S1 and S2. RRR. Systolic murmur over aortic area. Pacemaker in the left upper chest, appears clean. Resp: CTA B/L. No rhonchi, rales, crackles or wheezing. Abd: soft, obese, non-tender, non-distended. BS+ in all 4 quadrants. MSK: Good ROM in BUE & BLE. No edema or rash. Neuro: CN II-XII grossly intact. Strength 5/5 in BUE & BLE. Alert and oriented x3. Psych: appropriate mood and affect. Objective Labs 09/09/24 05:19 09/09/24 05:19 Labs: Laboratory Results - last 24 hr 09/09/24 05:19 WBC 6.4 RBC 3.92 L Hgb 11.5 L D Hct 34.7 L MCV 89 MCH 29.3 MCHC 33.1 RDW Std Deviation 46.3 Plt Count 82 L Neut % (Auto) 66 Lymph % (Auto) 22 [place] % (Auto) 9 Eos % (Auto) 3 Baso % (Auto) 1 Neut # (Auto) 4.2 Lymph # (Auto) 1.4 [place] # (Auto) 0.6 Eos # (Auto) 0.2 Baso # (Auto) 0.0 Immature Gran # (Auto) 0.03 H Absolute Nucleated RBC 0.00 Immature Gran % 1 H Nucleated RBC % 0 Sodium 139 Potassium 4.7 Chloride 105 Carbon Dioxide 27.2 Anion Gap 7 BUN 36 H Creatinine 1.6 H Estim Creat Clear Calc 40.3 L eGFR 34 L BUN/Creatinine Ratio 23 H Glucose 118 H Calculated Osmolality 286 Calcium 8.7 Corrected Calcium 9.1 Total Bilirubin 0.5 AST < 10 ALT < 7 L Alkaline Phosphatase 76 Total Protein 6.1 Albumin 3.5 D Globulin 2.6 Albumin/Globulin Ratio 1.3 Quality Measures Quality Measures VTE prophylaxis Advance care planning discussed with:: patient Assessment & Plan Assessment Current Active Medications: Generic Name Dose Route Start Last Admin Trade Name Freq PRN Reason Stop Dose Admin Acetaminophen 650 mg 09/06/24 23:54 Acetaminophen 325 Mg Tablet PO 10/06/24 23:53 Q6H PRN PAIN SCALE 1-3 (mild Melatonin 3 mg 09/07/24 21:05 09/08/24 20:07 Melatonin 3 Mg Tablet PO 10/07/24 21:04 3 mg HS FAN Administration Sennosides 1 tab 09/07/24 09:00 09/09/24 08:06 Senna Tablet PO 10/07/24 08:59 1 tab QDAY FAN Administration Protocol Trazodone HCl 50 mg 09/07/24 21:05 09/08/24 20:07 Trazodone Hcl 50 Mg Tablet PO 10/07/24 21:04 50 mg HS FAN Administration Plan Patient is a 74 years old female with PMH of HFpEF with EF of 55-60%, history of bradycardia, 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 She was admitted for further evaluation and possible pacemaker placement, cardiology consulted. #Symptomatic bradycardia, resolved. #Third degree AV block, s/p dual chamber pacemaker implantation 09/08/2024. - Patient has previous history of bradycardia, was previously recommended to have a pacemaker placed but refused. - In the ED EKG showed third degree AV block. Patient reported worsening weakness and multiple falls due to it. - She was admitted to ICU and started on low dose dopamine drip, maintaining HR 45-55 BPM, asymptomatic at rest. Plan: - Can be discharged with Keflex 500 mg PO BID for 7 days, follow up in 7 days for marco a removal. #HFpEF with EF of 50-55%. #Hypertension. #Hyperlipidemia. #Hx of CVA. - Echo was done showed normal left ventricular size and function, approximate ejection fraction is 50-55%. Echo from 2022 showed EF 55-60%. - at home she is taking aspirin, atorvastatin, furosemide, hydralazine and lisinopril. Plan: - Resume home aspirin, atorvastatin, furosemide, hydralazine and lisinopril. Management of other problems as per primary team. Plan of care discussed with attending Dr. Aggarwal. Ministerio Bourgeois MD, PGY 2. Disclaimer: This note was dictated by speech recognition. Minor errors in biological scientist may be present due to voice recognition software.
--- NOTE | 2024-09-09 16:50 | PC.SS ---
PASSR follow up completed. Patient's PASSR case to be closed. No PASSR follow up required.
--- NOTE | 2024-09-09 16:51 | PC.SS ---
SOFTWARE SYSTEMS ANALYST conducted bedside contact with the patient. Patient informed SOFTWARE SYSTEMS ANALYST that preferred SNF is now [facility].
--- NOTE | 2024-09-09 17:38 | PD.NEPHPROG ---
Documentation for date of: 09/09/24 Subjective Subjective Interval history: Ms. 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 Patient states for the last 2 to 3 weeks she has been having increased amount of falls 5 episodes of falls. She denies any preceding aura, lightheadedness, passing out, chest pain, shortness of breath, dizziness or any other associated symptoms with the fall. But she does state that she has noticed that she has become weaker requiring assistance to get to the bedside commode. She was previously recommended to have a pacemaker placed but refused because she wanted to attend physical rehabilitation following her CVA. She denies any relevant family history of heart conditions. She currently states that she is wanting a pacemaker now and rehabilitation to improve her functional status. In the ER, vital signs were recorded as temp 97.9 ?F, HR 50 bpm, RR 17, BP 126/73 mmHg, BMI 42, and GCS 15. Lab results revealed WBC 6.6, Hb 13.3, PLT 84, Na 140, K 4.5, Cl 108, BUN 53, creatinine 2.2, eGFR 29, and glucose 153. CXR showed mild to moderate enlargement of the cardiac contour, with no pneumothorax, pulmonary contusion, or hemothorax. EKG demonstrated second-degree AV block, Mobitz type I, rate 46. Admit for further evaluation; pacemaker placement is pending cardiology review. Nephrology consulted for management of BOOGIE on CKD, Dr. De Leon is patient's recoater//PCP. Patient seen and examined at bedside, resting comfortably. Endorses multiple falls with increasing weakness each fall, some dizziness. Patient does deny chest pain, shortness of breath, prodrome before falls, fever, chills, nausea, vomiting. Patient currently on dopamine drip with pacer pads. Dr. Aggarwal consulted for pacemaker placement. Sodium 140, potassium 4.1, bicarb 26.3, BUN 47, creatinine 2.0, EGFR 26. Kidney function improving, patient appears clinically dry on exam. On lactated Ringer's at 75 cc/h. 09/08/2024: Patient seen examined at bedside, resting comfortably. Had pacemaker implantation today, procedure went well. Currently monitoring shows paced rhythm at 60 bpm. Patient denies chest pain, shortness of breath, nausea, vomiting, fever, chills. Hemoglobin 14.1. Sodium 141, potassium 4.6, bicarb 27, BUN 29, creatinine 1.5, EGFR 37. IVF discontinued, encourage oral hydration. Possible DC tomorrow. 09/09/2024 patient currently seen in telemetry. Her daughter, 2 granddaughters at bedside. Resting comfortably. More alert and awake. Labs, medications reviewed. Patient wants to go to [facility]-possible bed availability tomorrow. Review of Systems Review of Systems Narrative Review of Systems: CONSTITUTIONAL: Patient denies any fever, chills. HEENT: Denies any visual disturbances or hearing problems. CARDIOVASCULAR: Patient denies any chest pain, shortness of breath, swelling in the lower extremities. PULMONARY: Patient denies any shortness of breath, cough. GASTROINTESTINAL: Patient denies any abdominal pain, constipation, nausea, vomiting, diarrhea. GENITOURINARY: Patient denies any urinary symptoms of burning or frequency or hematuria, denies any form in the urine. SKIN: Denies any rash. Musculoskeletal-complaining of gait imbalance NEUROLOGICAL: Denies any neurological problems of strokes, seizures or confusion. Denies any memory problems. PSYCHIATRIC: Denies any depression or anxiety. LYMPHATICS : No lymphadenopathy Exam Vital Signs Temp Pulse Resp BP Pulse Ox O2 Del Method O2 Flow Rate 36.3 C 63 14 129/61 96 Room Air 2 09/09/24 20:09/09/24 20:09/09/24 20:09/09/24 20:09/09/24 20:00 09/09/24 20:09/09/24 07:56 Narrative Exam GENERAL APPEARANCE: Patient seems to be comfortable, adequately hydrated and nourished. HEENT: EOMI, PERRLA NECK: Neck supple, no JVD or bruit CARDIOVASCULAR: Heart regular, no murmurs . Left pacemaker LUNGS/CHEST: Chest clear to auscultation. No rales, rhonchi, wheezing ABDOMEN: Soft, nontender, nondistended. No masses. Normal bowel sounds. EXTREMITIES: No edema, clubbing or cyanosis. SKIN: Skin exam normal without any rashes MUSCULOSKELETAL: Musculoskeletal exam normal PSYCHIATRIC: Normal mood, affect LYMPHATICS: No lymphadenopathy noted NEUROLOGICAL : No neurological deficits Objective Labs 09/09/24 05:19 09/09/24 05:19 Labs: Laboratory Results - last 24 hr 09/09/24 05:19 WBC 6.4 RBC 3.92 L Hgb 11.5 L D Hct 34.7 L MCV 89 MCH 29.3 MCHC 33.1 RDW Std Deviation 46.3 Plt Count 82 L Neut % (Auto) 66 Lymph % (Auto) 22 [place] % (Auto) 9 Eos % (Auto) 3 Baso % (Auto) 1 Neut # (Auto) 4.2 Lymph # (Auto) 1.4 [place] # (Auto) 0.6 Eos # (Auto) 0.2 Baso # (Auto) 0.0 Immature Gran # (Auto) 0.03 H Absolute Nucleated RBC 0.00 Immature Gran % 1 H Nucleated RBC % 0 Sodium 139 Potassium 4.7 Chloride 105 Carbon Dioxide 27.2 Anion Gap 7 BUN 36 H Creatinine 1.6 H Estim Creat Clear Calc 40.3 L eGFR 34 L BUN/Creatinine Ratio 23 H Glucose 118 H Calculated Osmolality 286 Calcium 8.7 Corrected Calcium 9.1 Total Bilirubin 0.5 AST < 10 ALT < 7 L Alkaline Phosphatase 76 Total Protein 6.1 Albumin 3.5 D Globulin 2.6 Albumin/Globulin Ratio 1.3 Assessment & Plan Additional Assessment & Plan Additional Plan: 74-year-old female with past medical history of HFpEF with EF of 65%, previous history of bradycardia, generalized weakness, 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 #BOOGIE on CKD Likely prerenal, patient is dry on exam and renal function proved with IVF. May be secondary to decreased p.o. intake and generalized weakness. Unlikely to be postrenal, patient has not had difficulty with urination or dysuria. CKD may be in the setting of longstanding hypertension. Currently creatinine 2.1 and baseline is 1.5-1.6. Kidney function improved after IVF. Patient tolerating oral intake well. - Avoid nephrotoxins - Monitor daily labs - Renally dose meds - Encourage oral hydration #Symptomatic bradycardia//third-degree block s/p pacemaker implantation EKG reveals A-fib with slow ventricular rate. Previous history of Mobitz type I. Patient was offered pacemaker in the past however declined. Patient is now open to receiving pacemaker settings symptomatic bradycardia. EKG reveals AFIB with rate of 46. Appears chronic. REPEAT EKG revealed prolonged MN interval. Patient admitted to ICU and was started on dopamine drip, has transcutaneous pacer pads. Cardiology consulted -- Pacemaker implanted, procedure well-tolerated. Cardiac monitoring shows paced rhythm at 60 bpm. #HFpEF 50 to 55% Echocardiogram Revealed a EF of 50 to 55% normal right ventricular pressure with trace mitral and trace tricuspid regurg. - Restart patient's home Lasix, aspirin, atorvastatin upon discharge #Hypertension Patient history of hypertension. Takes home lisinopril, Lasix, hydralazine. Medications held to avoid BP instability due to bradycardia. -Consider resuming home meds #Insomnia/difficulty sleeping Patient takes trazodone for sleep, however can cause cardiac arrhythmias. Currently held. - Monitor DVT prophylaxis: SCDs Diet: Cardiac, renal Lines: Peripheral IVs CODE STATUS: DNR/DNI
--- NOTE | 2024-09-09 19:30 | PC.NURSE ---
ATTEMPTED TO REACH DAUGHTER MANJIT, VIA PHONE, IN REGARDS TO MISSING MEDICATION BAG. PT UNSURE IF FAMILY MEMBER TOOK IT HOME. NO ANSWER. UNABLE TO LEAVE VOICEMAIL.
--- NOTE | 2024-09-09 19:59 | PC.NURSE ---
ATTEMPTED TO REACH DR. MARTINEZ FOR CLARIFICATION OF ABX FOR DISCHARGE. PT NOT ON ABX AT THIS TIME. VOICEMAIL LEFT. WILL AWAIT RETURN CALL
[2024-09-09] MEDS: traZODone HCL 50 MG TABLET PO (20:06)
[2024-09-09] MEDS: MELATONIN 3 MG TABLET PO (20:06)
[2024-09-09] MEDS: cephALEXin 250 MG CAPSULE 500 MG PO (21:53)
[2024-09-10] VITALS (7 sets, daily range): BP systolic 123–166; BP diastolic 65–84; PULSE 60–76; RESP 15–94; TEMP 35.9–36.7; O2SAT 94–97; BMI 43.1
[2024-09-10 05:55] LABS: Basophils % (Auto) 1 % (0-2.5); Eosinophils # (Auto) 0.2 Thou/mm3 (0.0-0.5); Eosinophils % (Auto) 4 % (0-10); Hematocrit 33.9 % (36.0-46.0); Hemoglobin 11.2 g/dL (12.0-16.0); Immature Granulocytes % (Auto) 1 % (0-0); Immature Granulocytes Auto 0.03 Thou/mm3 (0.00-0.00); Lymphocytes # (Auto) 1.4 Thou/mm3 (1.0-4.8); Lymphocytes % (Auto) 24 % (10-50); Mean Corpuscular Hemoglobin 29.2 pg (25.0-35.0); Mean Corpuscular Volume 88 fL (80-100); Monocytes # (Auto) 0.6 Thou/mm3 (0.0-0.8); Monocytes % (Auto) 10 % (0-12); Neutrophils # (Auto) 3.5 Thou/mm3 (1.8-7.7); Neutrophils % (Auto) 61 % (37-80); Nucleated Red Blood Cell % 0 /100 WBC (0); RDW Standard Deviation 46.8 fL (36.4-46.3); Red Blood Count 3.84 Miln/mm3 (4.00-5.20); White Blood Count 5.7 Thou/mm3 (3.6-11.0)
[2024-09-10 06:05] LABS: Platelet Count 78 Thou/mm3 (140-440)
[2024-09-10 06:06] LABS: Slide Review Platelets confirmed
[2024-09-10 06:20] LABS: Alanine Aminotransferase < 7 U/L (10-49); Albumin, Serum 3.5 gm/dL (3.4-4.8); Albumin/Globulin Ratio 1.3 (1.2-2.2); Alkaline Phosphatase 80 U/L (46-116); Anion Gap 8 (7-16); Aspartate Amino Transferase < 10 U/L (0-34); BUN/Creatinine Ratio 27 Ratio (12-20); Bilirubin,Total 0.5 mg/dL (0.3-1.2); Blood Urea Nitrogen 38 mg/dL (9-23); Calcium 8.6 mg/dL (8.3-10.6); Carbon Dioxide 28.7 mMol/L (20.0-31.0); Chloride 104 mMol/L (98-107); Creatinine (Component) 1.4 mg/dL (0.6-1.3); Estimated Creatinine Clearance 45.9 mL/min (>60); Globulin 2.6 gm/dL (2.3-3.5); Glucose 121 mg/dL (74-106); Osmolality,Calculated 291 (275-295); Potassium 4.6 mMol/L (3.4-5.1); Sodium 141 mMol/L (136-145); Total Protein 6.1 gm/dL (5.7-8.2); eGFR 40 See Note
[2024-09-10] MEDS: cephALEXin 250 MG CAPSULE 500 MG PO ×2 (08:45→21:19)
[2024-09-10] MEDS: SENNA TABLET 1 TAB PO (08:46)
--- NOTE | 2024-09-10 09:23 | ESDS_ITS ---
Planned Discharge Date 09/10/24 DS: Providers Provider Date of admission: 09/06/24 23:22 Primary care physician: Physician No Primary/Family Admitting Provider: Mukesh King MD Attending Provider on Admission: Favian Salazar MD Consults: 09/06/24 22:46 Consult to Cardiology Stat Comment: Consulting Provider: Natasha Aggarwal 09/06/24 22:47 Consult to Nephrology Stat Comment: Consulting Provider: Elena De Leon 09/07/24 00:15 PT [Referral Physical Therapy] Routine Comment: discharge planning will need snf Physician Instructions: 09/07/24 16:30 Referral Wound Care Routine Comment: Attending Provider on DC: Elena De Leon MD Discharging Provider: Charles Phillips MD DS: Diagnosis Problem List Completed Was Problem List Reviewed/Reconciled?: Yes Hospital Course Hospital Course Hospital course: Ms. 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 Patient also had ongoing weakness. On presentation patient noted to have severe bradycardia, as low as 40. Patient placed on dopamine drip and sent to ICU, received implanted pacemaker. Patient feeling much better following pacemaker implantation, with paced rhythm at 60 bpm. Patient cleared for discharge from cardiology perspective. Patient medically stable and cleared for discharge. Discharge plan: You are being discharged on the following medications: - Keflex 500 mg twice daily for 1 week Your Lasix is being held. Please continue taking all other medications as previously prescribed. You will follow-up with Dr. De Leon in 2 weeks. You will follow-up with Dr. Aggarwal in 1 week. Please call to make an appointment: -Address: [address] [place] [address] - Return to the ED if you develop new or worsening symptoms. Diagnoses: #BOOGIE on CKD #Symptomatic bradycardia//third-degree block s/p pacemaker implantation #HFpEF 50 to 55% #Hypertension #Insomnia/difficulty sleeping Plan of care discussed with attending Dr. De Leon. Charles Phillips MD PGY?1 Status at Discharge Overall status at discharge: patient is progressing back to baseline Time Spent with Patient Time attestation: Total time spent providing and/or coordinating discharge services: Time spent: Greater than 30 minutes Exam Vital Signs Temp Pulse Resp BP Pulse Ox O2 Del Method O2 Flow Rate 96.6 F L 60 16 123/66 96 Room Air 1 09/10/24 08:00 09/10/24 08:00 09/10/24 08:00 09/10/24 08:00 09/10/24 08:00 09/10/24 08:00 09/09/24 23:41 Narrative Exam PE: Gen: Well-developed and well-nourished. HEENT: NCAT, PERRLA, EOMI, MMM, anicteric conjunctivae. CVS: normal S1 and S2. No M/R/G. Paced rhythm. Pacemaker implanted, site dry, nonerythematous, nontender. Resp: CTA B/L. No rhonchi, rales, crackles or wheezing. Abd: soft, non-tender, non-distended. BS+ in all 4 quadrants. MSK: Good ROM in BUE & BLE. No edema or rash. Neuro: CN II-XII grossly intact. Strength 5/5 in BUE & BLE. Alert and oriented x3. Psych: appropriate mood and affect. Discharge Plan Plan Patient Disposition: Xfer Skilled Nsg Fac (SNF) Patient condition on transfer: Stable Care Plan Goals: You are being discharged on the following medications: - Keflex 500 mg twice daily for 1 week Your Lasix is being held. Please continue taking all other medications as previously prescribed. You will follow-up with Dr. De Leon in 2 weeks. You will follow-up with Dr. Aggarwal in 1 week. Please call to make an appointment: -Address: [address] [place] [address] - Return to the ED if you develop new or worsening symptoms. Prescriptions/Referrals Prescriptions/Med Rec: New cephalexin 500 mg capsule 500 mg PO BID Qty: 14 0RF furosemide 20 mg tablet 20 mg PO QAM Qty: 30 0RF Continued melatonin 10 mg Tablet 10 mg PO HS atorvastatin 80 mg tablet 80 mg PO HS Patient Comments: TAKE ONE TABLET BY MOUTH AT BEDTIME FOR CHOLESTEROL lisinopril 40 mg tablet 40 mg PO QDAY Patient Comments: TAKE ONE TABLET BY MOUTH EVERY DAY FOR BLOOD PRESSURE trazodone 50 mg tablet 50 mg PO HS Patient Comments: TAKE ONE TABLET BY MOUTH AT BEDTIME FOR SLEEP Rx Instructions: 50 mg orally; allopurinol 100 mg tablet 100 mg PO QDAY Patient Comments: TAKE ONE TABLET BY MOUTH EVERY DAY FOR GOUT aspirin 81 mg tablet,delayed release (DR/EC) 81 mg PO QDAY Patient Comments: TAKE ONE TABLET BY MOUTH EVERY DAY FOR THE HEART hydralazine 100 mg tablet 100 mg PO BID Patient Comments: TAKE ONE TABLET BY MOUTH THREE TIMES DAILY WITH FOOD Discontinued furosemide 40 mg tablet 40 mg PO QDAY Patient Comments: TAKE ONE TABLET BY MOUTH EVERY MORNING A DIURETIC Referrals: No Primary/Family,Physician [Primary Care Provider] - Natasha Aggarwal MD [Physician] - Patient/Caregiver Discharge Instructions Discharge Activity: activity as tolerated Education Materials: Pacemakers, Living with a Pacemaker, Discharge I nstructions for ..., Understanding Bradycardia, ED Bradycardia Print Language: Guyanese Activity Restrictions/Additional Instructions: f/u with me post dc Stand Alone Forms: Emily Award Info., Patient Portal Info Letter Discharge Order Discharge Orders: Discharge (Routine); Ordered 09/09/24 Ordered By: Charles Phillips Quality Discharge Quality Measures VTE prophylaxis
--- NOTE | 2024-09-10 10:04 | PC.NURSE ---
I spoke to patient's daughter Nano, whom informed me that she has patients medication bag with her at home.
--- NOTE | 2024-09-10 11:04 | PC.SS ---
RETAIL WIRELESS SALES CONSULTANT followed up with patient's preferred SNF to inquire about placement. [facility] staff informed RETAIL WIRELESS SALES CONSULTANT that they cannot accept patient due to last available room under isolation precautions. RETAIL WIRELESS SALES CONSULTANT informed patient. Patient agreeable to [facility]. RETAIL WIRELESS SALES CONSULTANT contacted [facility] staff to inquire about room availability. C informed RETAIL WIRELESS SALES CONSULTANT that facility can accept the patient. Updated clinicals submitted to initiate authorization.
--- NOTE | 2024-09-10 17:26 | ESPR_ITS ---
<Statement entered by Natasha Aggarwal MD - 09/11/24 07:44> The patient evaluated examined by me this be doing clinically fairly well no shortness of or chest pain underwent pacemaker implant successfully patient is stable to be discharged and Keflex for 1 week follow-up in 1 week following discharge. Agree with treatment plan recommendation as documented by PGY [address] Dr. Mandel Documentation for date of: 09/10/24 Subjective Subjective Interval history: Patient was seen and examined at bedside. No overnight events. Patient is asymptomatic. Her heart rate in the 60s. Continue current management. Exam Vital Signs Temp Pulse Resp BP Pulse Ox O2 Del Method O2 Flow Rate 96.9 F 60 18 166/73 H 95 Room Air 1 09/10/24 12:00 09/10/24 14:30 09/10/24 14:30 09/10/24 12:00 09/10/24 12:00 09/10/24 12:00 09/09/24 23:41 Narrative Exam Gen: Well-developed and well-nourished elderly female. HEENT: NCAT, PERRLA, EOMI, MMM, anicteric conjunctivae. CVS: normal S1 and S2. RRR. Systolic murmur over aortic area. Pacemaker in the left upper chest, appears clean. Resp: CTA B/L. No rhonchi, rales, crackles or wheezing. Abd: soft, obese, non-tender, non-distended. BS+ in all 4 quadrants. MSK: Good ROM in BUE & BLE. No edema or rash. Neuro: CN II-XII grossly intact. Strength 5/5 in BUE & BLE. Alert and oriented x3. Psych: appropriate mood and affect. Objective Labs 09/10/24 05:17 09/10/24 05:17 Labs: Laboratory Results - last 24 hr 09/10/24 05:17 WBC 5.7 RBC 3.84 L Hgb 11.2 L Hct 33.9 L MCV 88 MCH 29.2 MCHC 33.0 RDW Std Deviation 46.8 H Plt Count 78 L Neut % (Auto) 61 Lymph % (Auto) 24 [place] % (Auto) 10 Eos % (Auto) 4 Baso % (Auto) 1 Neut # (Auto) 3.5 Lymph # (Auto) 1.4 [place] # (Auto) 0.6 Eos # (Auto) 0.2 Baso # (Auto) 0.0 Immature Gran # (Auto) 0.03 H Absolute Nucleated RBC 0.00 Immature Gran % 1 H Nucleated RBC % 0 Sodium 141 Potassium 4.6 Chloride 104 Carbon Dioxide 28.7 Anion Gap 8 BUN 38 H Creatinine 1.4 H Estim Creat Clear Calc 45.9 L eGFR 40 L BUN/Creatinine Ratio 27 H Glucose 121 H Calculated Osmolality 291 Calcium 8.6 Corrected Calcium 9.0 Total Bilirubin 0.5 AST < 10 ALT < 7 L Alkaline Phosphatase 80 Total Protein 6.1 Albumin 3.5 Globulin 2.6 Albumin/Globulin Ratio 1.3 Misc Test Result Platelets confirmed Quality Measures Quality Measures VTE prophylaxis Advance care planning discussed with:: patient Assessment & Plan Assessment Current Active Medications: Generic Name Dose Route Start Last Admin Trade Name Freq PRN Reason Stop Dose Admin Acetaminophen 650 mg 09/06/24 23:54 Acetaminophen 325 Mg Tablet PO 10/06/24 23:53 Q6H PRN PAIN SCALE 1-3 (mild Cephalexin HCl 500 mg 09/09/24 21:00 09/10/24 08:45 Cephalexin 250 Mg Capsule PO 09/16/24 20:59 500 mg BID FAN Administration Melatonin 3 mg 09/07/24 21:05 09/09/24 20:06 Melatonin 3 Mg Tablet PO 10/07/24 21:04 3 mg HS FAN Administration Sennosides 1 tab 09/07/24 09:00 09/10/24 08:46 Senna Tablet PO 10/07/24 08:59 1 tab QDAY FAN Administration Protocol Trazodone HCl 50 mg 09/07/24 21:05 09/09/24 20:06 Trazodone Hcl 50 Mg Tablet PO 10/07/24 21:04 50 mg HS FAN Administration Plan Patient is a 74 years old female with PMH of HFpEF with EF of 55-60%, history of bradycardia, 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 She was admitted for further evaluation and possible pacemaker placement, cardiology consulted. #Symptomatic bradycardia, resolved. #Third degree AV block, s/p dual chamber pacemaker implantation 09/08/2024. - Patient has previous history of bradycardia, was previously recommended to have a pacemaker placed but refused. - In the ED EKG showed third degree AV block. Patient reported worsening weakness and multiple falls due to it. - She was admitted to ICU and started on low dose dopamine drip, maintaining HR 45-55 BPM, asymptomatic at rest. Plan: - Can be discharged with Keflex 500 mg PO BID for 7 days, follow up in 7 days for marco a removal. #HFpEF with EF of 50-55%. #Hypertension. #Hyperlipidemia. #Hx of CVA. - Echo was done showed normal left ventricular size and function, approximate ejection fraction is 50-55%. Echo from 2022 showed EF 55-60%. - at home she is taking aspirin, atorvastatin, furosemide, hydralazine and lisinopril. Plan: - Resume home aspirin, atorvastatin, furosemide, hydralazine and lisinopril. Management of other problems as per primary team. Plan of care discussed with attending Dr. Aggarwal. Ministerio Bourgeois MD, PGY 2. Disclaimer: This note was dictated by speech recognition. Minor errors in senior information developer may be present due to voice recognition software.
[2024-09-10] MEDS: MELATONIN 3 MG TABLET PO (21:19)
[2024-09-10] MEDS: traZODone HCL 50 MG TABLET PO (21:19)
[2024-09-11] VITALS (8 sets, daily range): BP systolic 130–178; BP diastolic 65–86; PULSE 60–82; RESP 14–94; TEMP 36.2–36.5; O2SAT 92–98; BMI 43.4; BMI 12.0
[2024-09-11] MEDS: ACETAMINOPHEN 325 MG TABLET 650 MG PO (05:53)
[2024-09-11 06:25] LABS: Basophils % (Auto) 1 % (0-2.5); Eosinophils # (Auto) 0.2 Thou/mm3 (0.0-0.5); Eosinophils % (Auto) 4 % (0-10); Hematocrit 33.9 % (36.0-46.0); Hemoglobin 11.4 g/dL (12.0-16.0); Immature Granulocytes % (Auto) 1 % (0-0); Immature Granulocytes Auto 0.03 Thou/mm3 (0.00-0.00); Lymphocytes # (Auto) 1.4 Thou/mm3 (1.0-4.8); Lymphocytes % (Auto) 28 % (10-50); Mean Corpuscular HGB Conc 33.6 g/dl (31.0-37.0); Mean Corpuscular Hemoglobin 29.2 pg (25.0-35.0); Mean Corpuscular Volume 87 fL (80-100); Monocytes # (Auto) 0.4 Thou/mm3 (0.0-0.8); Monocytes % (Auto) 8 % (0-12); Neutrophils # (Auto) 2.9 Thou/mm3 (1.8-7.7); Neutrophils % (Auto) 59 % (37-80); Nucleated Red Blood Cell % 0 /100 WBC (0); White Blood Count 4.9 Thou/mm3 (3.6-11.0)
[2024-09-11 06:27] LABS: Platelet Count 68 Thou/mm3 (140-440)
[2024-09-11 07:02] LABS: Alanine Aminotransferase < 7 U/L (10-49); Albumin, Serum 3.7 gm/dL (3.4-4.8); Albumin/Globulin Ratio 1.4 (1.2-2.2); Alkaline Phosphatase 81 U/L (46-116); Anion Gap 8 (7-16); Aspartate Amino Transferase 10 U/L (0-34); BUN/Creatinine Ratio 25 Ratio (12-20); Bilirubin,Total 0.5 mg/dL (0.3-1.2); Blood Urea Nitrogen 30 mg/dL (9-23); Calcium 8.8 mg/dL (8.3-10.6); Carbon Dioxide 25.7 mMol/L (20.0-31.0); Chloride 105 mMol/L (98-107); Creatinine (Component) 1.2 mg/dL (0.6-1.3); Estimated Creatinine Clearance 52.8 mL/min (>60); Globulin 2.7 gm/dL (2.3-3.5); Glucose 107 mg/dL (74-106); Osmolality,Calculated 283 (275-295); Potassium 4.5 mMol/L (3.4-5.1); Sodium 139 mMol/L (136-145); Total Protein 6.4 gm/dL (5.7-8.2); eGFR 48 See Note
[2024-09-11 07:53] LABS: Slide Review Platelets confirmed
[2024-09-11] MEDS: cephALEXin 250 MG CAPSULE 500 MG PO ×2 (08:58→20:37)
[2024-09-11] MEDS: SENNA TABLET 1 TAB PO (08:59)
--- NOTE | 2024-09-11 16:11 | PC.SS ---
FBI FIELD AGENT attempted phone contact with [facility] staff member Mayra, ext [phone]; to obtain update on authorization. No response. [employer] FIELD AGENT left voicemail requesting return call.
--- NOTE | 2024-09-11 16:44 | PC.SS ---
MECHANICAL SYSTEMS CONTROL ENGINEER received phone call from SNF staff, Janet Swanson; confirming that authorization request remains in review.
--- NOTE | 2024-09-11 17:44 | PD.ADDDSCHGE ---
Addendum Discharge Addendum Date of report being addended: 09/10/24 Narrative: Ms. 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 Patient also had ongoing weakness. On presentation patient noted to have severe bradycardia, as low as 40. Patient placed on dopamine drip and sent to ICU, received implanted pacemaker. Patient feeling much better following pacemaker implantation, with paced rhythm at 60 bpm. Patient cleared for discharge from cardiology perspective. Patient medically stable and cleared for discharge. Diagnoses: - BOOGIE on CKD - Symptomatic bradycardia//third-degree block s/p pacemaker implantation - HFpEF 50 to 55% - Hypertension - Insomnia/difficulty sleeping 09/11/2024 DC delayed due to elevaated BP. Received call from RN at 5:30 PM on 09/11/2024 re: BP 170/110s and HR 63bpm s/p pacemaker placement. Plan: - Amlodipine 5mg PO x1 ordered. Will monitor BP closely. - Will update night team re: BP control. - Patient care to be taken over by hospitalist team. - Anticipate DC within 24 hours. Plan of care discussed with attending Dr Akins, - Fito Valenzuela M.D. PGY2 Disclaimer: Minor errors in cable assembler and swager may be present as this note was dictated using voice recognition software.
[2024-09-11] MEDS: amLODIPine BESYLATE 5 MG TABLET PO (17:55)
[2024-09-11] MEDS: MELATONIN 3 MG TABLET PO (20:37)
[2024-09-11] MEDS: traZODone HCL 50 MG TABLET PO (20:37)
[2024-09-12] VITALS (8 sets, daily range): BP systolic 117–166; BP diastolic 56–92; PULSE 60–102; RESP 14–95; TEMP 36.1–36.4; O2SAT 93–97; BMI 43.4
[2024-09-12 06:26] LABS: Basophils % (Auto) 1 % (0-2.5); Eosinophils # (Auto) 0.2 Thou/mm3 (0.0-0.5); Eosinophils % (Auto) 4 % (0-10); Hematocrit 35.2 % (36.0-46.0); Hemoglobin 11.8 g/dL (12.0-16.0); Immature Granulocytes % (Auto) 1 % (0-0); Immature Granulocytes Auto 0.04 Thou/mm3 (0.00-0.00); Lymphocytes # (Auto) 1.3 Thou/mm3 (1.0-4.8); Lymphocytes % (Auto) 28 % (10-50); Mean Corpuscular HGB Conc 33.5 g/dl (31.0-37.0); Mean Corpuscular Hemoglobin 29.6 pg (25.0-35.0); Mean Corpuscular Volume 88 fL (80-100); Monocytes # (Auto) 0.4 Thou/mm3 (0.0-0.8); Monocytes % (Auto) 8 % (0-12); Neutrophils # (Auto) 2.7 Thou/mm3 (1.8-7.7); Neutrophils % (Auto) 60 % (37-80); Nucleated Red Blood Cell % 0 /100 WBC (0); Platelet Count 80 Thou/mm3 (140-440); RDW Standard Deviation 45.8 fL (36.4-46.3); Red Blood Count 3.98 Miln/mm3 (4.00-5.20); White Blood Count 4.5 Thou/mm3 (3.6-11.0)
[2024-09-12 07:39] LABS: Alanine Aminotransferase < 7 U/L (10-49); Albumin, Serum 3.7 gm/dL (3.4-4.8); Albumin/Globulin Ratio 1.4 (1.2-2.2); Alkaline Phosphatase 85 U/L (46-116); Anion Gap 9 (7-16); Aspartate Amino Transferase 11 U/L (0-34); BUN/Creatinine Ratio 25 Ratio (12-20); Bilirubin,Total 0.5 mg/dL (0.3-1.2); Blood Urea Nitrogen 27 mg/dL (9-23); Calcium (Corrected) 9.2 mg/dL (8.5-10.1); Chloride 105 mMol/L (98-107); Creatinine (Component) 1.1 mg/dL (0.6-1.3); Estimated Creatinine Clearance 57.5 mL/min (>60); Globulin 2.7 gm/dL (2.3-3.5); Glucose 114 mg/dL (74-106); Osmolality,Calculated 287 (275-295); Potassium 4.4 mMol/L (3.4-5.1); Sodium 141 mMol/L (136-145); Total Protein 6.4 gm/dL (5.7-8.2); eGFR 53 See Note
[2024-09-12] MEDS: cephALEXin 250 MG CAPSULE 500 MG PO (08:28)
[2024-09-12] MEDS: SENNA TABLET 1 TAB PO (08:28)
[2024-09-12] MEDS: ASPIRIN EC 81 MG TABEC PO (08:28)
[2024-09-12] MEDS: hydrALAZINE HCL 25 MG TABLET 100 MG PO (08:28)
[2024-09-12] MEDS: Lisinopril 20 MG TABLET 40 MG PO (08:28)
--- NOTE | 2024-09-12 09:24 | PC.SS ---
Addendum entered by Dupree Bruce 09/12/24 16:24: SS informed by [facility] SN[facility] patient can be received today. LOBO obtained, [facility] contacted [phone] and transportation scheduled for 1829. Patient's daughter Aaliyah, DEMARIO BarretoAym, RN Judith, and Dr. Valenzuela informed of discharge ETA 1829 via [facility]. Addendum [facility] by [facility] 09/12/24 12:09: PT notes submitted to [facility] for review, Caron stated she will submit to [facility] for review. Addendum entered by [facility] 09/12/24 09:58: SS provided with contact information for authorization by [facility], [facility] [phone], pending auth. #[id number]. SS attempted to contact ([facility]), a message was left requesting a return call. Original Note: SS contacted [facility] who stated authorization from insurance for SNF has not been received and will likely not occur due to insurance agency being closed on weekends.
--- NOTE | 2024-09-12 10:42 | ESPR_ITS ---
Documentation for date of: 09/12/24 Subjective Subjective Interval history: 09/12/2024: Patient continues to be medically discharged; however, will require staying in the hospital until Thursday 09/14 for SNF placement. Patient seen and examined in hospital bed remains asymptomatic and denies having any concerning cardiac symptoms at this time. Will continue monitoring for any acute changes. Exam Vital Signs Temp Pulse Resp BP Pulse Ox O2 Del Method O2 Flow Rate 97.2 F 60 14 159/92 H 95 Room Air 1 09/12/24 08:00 09/12/24 08:28 09/12/24 08:00 09/12/24 08:28 09/12/24 08:00 09/12/24 08:00 09/09/24 23:41 Narrative Exam Physical Exam: Gen: Well-developed and well-nourished. HEENT: NCAT, PERRLA, EOMI, MMM, anicteric conjunctivae. CVS: normal S1 and S2. No M/R/G. Paced rhythm. Pacemaker implanted, site dry, nonerythematous, nontender. Resp: CTA B/L. No rhonchi, rales, crackles or wheezing. Abd: soft, non-tender, non-distended. BS+ in all 4 quadrants. MSK: Good ROM in BUE & BLE. No edema or rash. Neuro: CN II-XII grossly intact. Strength 5/5 in BUE & BLE. Alert and oriented x3. Psych: appropriate mood and affect. Objective Labs 09/12/24 05:32 09/12/24 05:32 Labs: Laboratory Results - last 24 hr 09/12/24 05:32 WBC 4.5 RBC 3.98 L Hgb 11.8 L Hct 35.2 L MCV 88 MCH 29.6 MCHC 33.5 RDW Std Deviation 45.8 Plt Count 80 L Neut % (Auto) 60 Lymph % (Auto) 28 [place] % (Auto) 8 Eos % (Auto) 4 Baso % (Auto) 1 Neut # (Auto) 2.7 Lymph # (Auto) 1.3 [place] # (Auto) 0.4 Eos # (Auto) 0.2 Baso # (Auto) 0.0 Immature Gran # (Auto) 0.04 H Absolute Nucleated RBC 0.00 Immature Gran % 1 H Nucleated RBC % 0 Sodium 141 Potassium 4.4 Chloride 105 Carbon Dioxide 27.0 Anion Gap 9 BUN 27 H Creatinine 1.1 Estim Creat Clear Calc 57.5 L eGFR 53 L BUN/Creatinine Ratio 25 H Glucose 114 H Calculated Osmolality 287 Calcium 9.0 Corrected Calcium 9.2 Total Bilirubin 0.5 AST 11 ALT < 7 L Alkaline Phosphatase 85 Total Protein 6.4 Albumin 3.7 Globulin 2.7 Albumin/Globulin Ratio 1.4 Quality Measures Quality Measures VTE prophylaxis Advance care planning discussed with:: patient Assessment & Plan Assessment Current Active Medications: Generic Name Dose Route Start Last Admin Trade Name Freq PRN Reason Stop Dose Admin Acetaminophen 650 mg 09/06/24 23:54 09/11/24 05:53 Acetaminophen 325 Mg Tablet PO 10/06/24 23:53 650 mg Q6H PRN Administration PAIN SCALE 1-3 (mild Amlodipine Besylate 5 mg 09/12/24 21:00 Amlodipine Besylate 5 Mg Tablet PO 10/12/24 20:59 HS FAN Aspirin 81 mg 09/12/24 09:00 09/12/24 08:28 Aspirin Ec 81 Mg Tabec PO 10/12/24 08:59 81 mg QDAY FAN Administration Cephalexin HCl 500 mg 09/09/24 21:00 09/12/24 08:28 Cephalexin 250 Mg Capsule PO 09/16/24 20:59 500 mg BID FAN Administration Hydralazine HCl 100 mg 09/12/24 09:00 09/12/24 08:28 Hydralazine Hcl 25 Mg Tablet PO 10/12/24 11:00 100 mg BID FAN Administration Lisinopril 40 mg 09/12/24 09:00 09/12/24 08:28 Lisinopril 20 Mg Tablet PO 10/12/24 08:59 40 mg QDAY FAN Administration Melatonin 3 mg 09/07/24 21:05 09/11/24 20:37 Melatonin 3 Mg Tablet PO 10/07/24 21:04 3 mg HS FAN Administration Sennosides 1 tab 09/07/24 09:00 09/12/24 08:28 Senna Tablet PO 10/07/24 08:59 1 tab QDAY FAN Administration Protocol Trazodone HCl 50 mg 09/07/24 21:05 09/11/24 20:37 Trazodone Hcl 50 Mg Tablet PO 10/07/24 21:04 50 mg HS FAN Administration Plan 74-year-old female with past medical history of HFpEF with EF of 65%, previous history of bradycardia, generalized weakness, 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 Patient also had ongoing weakness. On presentation patient noted to have severe bradycardia, as low as 40. Patient placed on dopamine drip and sent to ICU, received implanted pacemaker. Patient feeling much better following pacemaker implantation, with paced rhythm at 60 bpm. Patient cleared for discharge from cardiology perspective. Patient medically stable and cleared for discharge. Hospital Diagnosis: #BOOGIE on CKD #Symptomatic bradycardia//third-degree block s/p pacemaker implantation #HFpEF 50 to 55% #Hypertension #Insomnia 09/12/2024 DC delayed due to Thursday 09/14 due to SNF placement needs Plan: Restarted patient's lisinopril 40 mg p.o. daily and hydralazine 100 mg p.o. twice daily Continue monitoring vitals Patient seen and examined with attending Dr. Tashi Mathis, PGY-1
== END 2024-09-12 18:53 | disposition skilled nursing facility (03) | DRG 243 ==
LOC: SERX 22:50 → SERHOLD 09-07 06:47 → S2SX 09-07 08:05 → S2NX 09-08 16:23
PROVIDERS: Internal Medicine Cardiovascular Disease; Registered Nurse General Practice; Student in an Organized Health Care Education/Training Program; Admitting Provider Internal Medicine; Emergency Provider Emergency Medicine; Visit Provider Internal Medicine Cardiovascular Disease
PROC: 0JH606Z Insertion of Pacemaker, Dual Chamber into Chest Subcutaneous Tissue and Fascia, Open Approach (ICD-10-PCS; principal; 2024-09-08 09:00)
DX: I44.2 Atrioventricular block, complete (principal); I13.0 Hypertensive heart and chronic kidney disease with heart failure and stage 1 through stage 4 chronic kidney disease, or unspecified chronic kidney disease; I50.32 Chronic diastolic (congestive) heart failure; N17.9 Acute kidney failure, unspecified; Z68.41 Body mass index [BMI] 40.0-44.9, adult; I45.89 Other specified conduction disorders; E78.5 Hyperlipidemia, unspecified; R00.1 Bradycardia, unspecified; N18.32 Chronic kidney disease, stage 3b; G47.00 Insomnia, unspecified; I48.91 Unspecified atrial fibrillation; R29.6 Repeated falls; E66.813 Obesity, class 3; D69.6 Thrombocytopenia, unspecified; M10.9 Gout, unspecified; Z86.73 Personal history of transient ischemic attack (TIA), and cerebral infarction without residual deficits; Z66 Do not resuscitate; Z74.1 Need for assistance with personal care; Z90.49 Acquired absence of other specified parts of digestive tract; Z75.1 Person awaiting admission to adequate facility elsewhere; Z79.82 Long term (current) use of aspirin; Z79.899 Other long term (current) drug therapy
CPT/HCPCS: 36415; 70450; 71045; 72125; 80053; 80061; 80307; 81001; 83036; 83615; 83735; 83880; 84100; 84443; 84484; 85025; 85610; 85730; 86850; 86870; 86900; 86901; 87081; 93005; 93306; 97162; 99152; 99153; 99285; A4565; A4649; C1769; C1785; C1894; C1898; J0153; J0171; J0282; J0461; J0689; J1265; J2250; J2310; J2371; J2405; J2470; J3010; J3370; J3490; J7120; A9270